=== PATIENT | female | born 1945 | race African-American/Black ===

== ENCOUNTER 2018-02-24 16:07 | Inpatient (IN) | payer OTHER ==
--- NOTE | 2018-02-24 18:12 | ER ---
Nurse's Notes [facility] Name: Yelena Flores Age: 72 yrs Sex: Female : 1945 Arrival Date: 02/24/2018 Time: 16:16 Bed 7 Private MD: Diagnosis: Cellulitis right lower extremity, mutlipe stage one decub (right foot and bottock, chronic left shoulder pain Presentation: 02/24 16:08 Presenting complaint: EMS states: c/o nausea and left shoulder pain. Afebrile. BP 99/53 sv HR 88 99% RA BS-129, 20G L AC. Transition of care: patient was not received from another setting of care. Onset of symptoms was February 23, 2018. Care prior to arrival: IV initiated. 20 GA, in the left antecubital area, Glucose check: 129. 16:08 Method Of Arrival: EMS: [facility] sv 16:08 Acuity: EMMA 4 sv 16:09 Initial Sepsis Screen: Does the patient meet any 2 criteria? No. Patient's initial sv sepsis screen is negative. Does the patient have a suspected source of infection? No. Patient's initial sepsis screen is negative. Triage Assessment: 19:00 GI: Reports nausea. bp 19:00 General: Appears in no apparent distress. comfortable. bp Historical: - Allergies: 16:19 Codeine; sv - Home Meds: 19:44 carvedilol 25 mg Oral tab [Active]; furosemide 40 mg/5 mL Oral soln [Active]; bp gabapentin 600 mg Oral tab [Active]; isosorbide mononitrate 60 mg Oral Tb24 [Active]; lisinopril 20 mg Oral tab [Active]; nortriptyline 75 mg Oral cap [Active]; Potassium Chloride Oral [Active]; tramadol 50 mg Oral tab [Active]; Xarelto 20 mg Oral tab [Active]; - PMHx: 16:19 CHF; CVA; Hypertension; Lupus; neuropathy; sv - Immunization history:: Adult Immunizations up to date. - Social history:: Smoking status: unknown. Screenin:30 Abuse screen: Denies threats or abuse. Denies injuries from another. Nutritional sg screening: No deficits noted. Tuberculosis screening: No symptoms or risk factors identified. Never had TB. Fall Risk None identified. Assessment: 16:30 General: Appears in no apparent distress. comfortable, well groomed, well developed, sg well nourished, Behavior is calm, cooperative, appropriate for age. Pain: Complains of pain in right leg and anterior aspect of right ankle and medial aspect of right calf. Neuro: Level of Consciousness is awake, alert, obeys commands, Oriented to person, place, time, Rn Manager are equal bilaterally Moves all extremities. Full function Speech is normal, Facial symmetry appears normal. Cardiovascular: Heart tones S1 S2 present Capillary refill is brisk in bilateral fingers Patient's skin is warm and dry. Chest pain is denied. Cardiovascular: Edema pitting to left ankle, left foot, left toes, right ankle, right foot and right toes. Respiratory: Airway is patent Respiratory effort is even, unlabored, Respiratory pattern is regular, symmetrical. GI: Abdomen is round non-distended, Bowel sounds present X 4 quads. Abd is soft X 4 quads. : No signs and/or symptoms were reported regarding the genitourinary system. EENT: No signs and/or symptoms were reported regarding the EENT system. Derm: Skin is intact, is healthy with good turgor, Skin is dry, Skin is normal, Skin temperature is warm Rash noted that is red, on right calf, right maldonado, left calf and left maldonado. Musculoskeletal: No signs and/or symptoms reported regarding the musculoskeletal system. 17:30 Reassessment: Patient appears in no apparent distress at this time. Patient and/or sg family updated on plan of care and expected duration. Pain level reassessed. Patient is alert, oriented x 3, equal unlabored respirations, skin warm/dry/pink. pt crying at this time, awaiting orders from ERP , will continue to monitor. 18:10 Reassessment: Patient appears in no apparent distress at this time. Patient and/or sg family updated on plan of care and expected duration. Pain level reassessed. Patient is alert, oriented x 3, equal unlabored respirations, skin warm/dry/pink. awaiting orders from ED provider at this time. 18:30 Reassessment: at bedside with pt at this time. sg 19:00 Reassessment: RECD REPORT FROM SHIRAZ BARTH. 72YO BF P/W NAUSEA AND CHRONIC SHOULDER bp PAIN. ADMIT IN PROCESS FOR CELLULITIS. Vital Signs: 16:20 BP 101 / 47; Pulse 90; Resp 18; Temp 97.6(O); Pulse Ox 96% on R/A; Height 5 ft. 4 in. sv (162.56 cm) (R); Pain 5/10; 17:00 BP 104 / 48; Pulse 95; Resp 18; Pulse Ox 96% ; sv 18:00 BP 94 / 70; Pulse 101; Resp 18; Pulse Ox 96% ; sv 19:00 BP 114 / 48; Pulse 101; Resp 18; Pulse Ox 97% ; sv 20:00 BP 86 / 42; Pulse 92; Resp 16; Pulse Ox 97% ; bp 20:41 BP 99 / 48; Pulse 99; Resp 16; Pulse Ox 97% ; bp ED Course: 16:16 Patient arrived in ED. sv 16:18 Triage completed. sv 16:19 Arm band placed on left wrist. sv 16:19 Maintain EMS IV. Dressing intact. Site clean \T\ dry. Gauge \T\ site: 20G L AC. sv 16:30 Patient has correct armband on for positive identification. Bed in low position. Call sg light in reach. Side rails up X2. Pulse ox on. NIBP on. Head of bed elevated. Elevated right left leg. 16:46 Jacek Strickland MD is Attending Physician. kdr 16:48 Nathaniel Ochoa, LARY is Primary Nurse. sg 18:10 Norm Neville MD is Hospitalizing Provider. kdr 18:15 Initial lab(s) drawn, by nm, sent to lab. First set of blood cultures drawn by me. sv Inserted saline lock: 22 gauge in right forearm, using aseptic technique. ,using aseptic technique. diffusics Blood collected. Flushed right forearm with 5 ml normal saline. 18:30 Second set of blood cultures drawn by me. sv 19:00 No provider procedures requiring assistance completed. sg 19:04 Primary Nurse role handed off by Nathaniel Ochoa, LARY bp 19:04 Robbie Pereyra, LARY is Primary Nurse. bp 19:45 Patient admitted, IV remains in place. bp Administered Medications: 19:00 Drug: Clindamycin 600 mg Route: IVPB; Infused Over: 30 mins; Site: right forearm; sv 19:46 Follow up: IV Status: Completed infusion bp 19:00 Drug: Bactrim (160 mg-800 mg (DS) 1 tablet Route: PO; sv 19:48 Follow up: Response: No adverse reaction bp 19:00 Drug: morphine 2 mg Route: IVP; Site: right forearm; sv 19:48 Follow up: Response: No adverse reaction bp 19:00 Drug: Zofran 4 mg Route: IVP; Site: right forearm; sv 19:48 Follow up: Response: No adverse reaction bp Outcome: 18:12 Decision to Hospitalize by Provider. kdr 19:45 Condition: stable bp 19:45 Instructed on the need for admit. 20:40 Admitted to Med/surg accompanied by tech, via stretcher, room 404, with chart, Report bp called to ANNY BARTH 21:12 Patient left the ED. bp Signatures: Tila Freeman RN RN Nathaniel Escobar RN RN sg Rittger, Kevin, MD MD kdr Robbie Pereyra RN RN bp
--- NOTE | 2018-02-24 18:13 | EDPHYS ---
Physician Documentation [facility] Name: Yelena Flores Age: 72 yrs Sex: Female : 1945 Arrival Date: 02/24/2018 Time: 16:16 Bed 7 Private MD: ED Physician Jacek Strickland HPI: 02/24 18:33 This 72 yrs old Black Female presents to ER via EMS with complaints of Nausea, Shoulder kdr Pain \T\ right leg edema./cellulitis. 18:34 The patient has multiple complaints including left shoulder (chronic) , n/v, right leg kdr swelling and warmth, stage I decub on right heal and huttock. Onset: The symptoms/episode began/occurred gradually, 3 day(s) ago. Severity of symptoms: At their worst the symptoms were mild moderate just prior to arrival. The patient has experienced similar episodes in the past, a few times. The patient has been recently seen by a physician: The patient has been recently been admitted at [facility], a few weeks ago. Historical: - Allergies: 16:19 Codeine; sv - Home Meds: 19:44 carvedilol 25 mg Oral tab [Active]; furosemide 40 mg/5 mL Oral soln [Active]; bp gabapentin 600 mg Oral tab [Active]; isosorbide mononitrate 60 mg Oral Tb24 [Active]; lisinopril 20 mg Oral tab [Active]; nortriptyline 75 mg Oral cap [Active]; Potassium Chloride Oral [Active]; tramadol 50 mg Oral tab [Active]; Xarelto 20 mg Oral tab [Active]; - PMHx: 16:19 CHF; CVA; Hypertension; Lupus; neuropathy; sv - Immunization history:: Adult Immunizations up to date. - Social history:: Smoking status: unknown. ROS: 18:34 Constitutional: Negative for fever, chills, and weight loss, Eyes: Negative for injury, kdr pain, redness, and discharge, ENT: Negative for injury, pain, and discharge, Neck: Negative for injury, pain, and swelling, Cardiovascular: Negative for chest pain, palpitations, and edema, Respiratory: Negative for shortness of breath, cough, wheezing, and pleuritic chest pain, Abdomen/GI: Negative for abdominal pain, nausea, vomiting, diarrhea, and constipation, Back: Negative for injury and pain, : Negative for injury, bleeding, discharge, and swelling, Neuro: Negative for headache, weakness, numbness, tingling, and seizure activity. Psych: Negative for depression, anxiety, suicide ideation, homicidal ideation, and hallucinations, Allergy/Immunology: Negative for hives, rash, and allergies, Endocrine: Negative for neck swelling, polydipsia, polyuria, polyphagia, and marked weight changes. 18:34 MS/extremity: Positive for pain, swelling, tenderness, warmth, of the lateral aspect of right calf, right ankle, right calf, right Achilles, medial aspect of right calf, right maldonado and anterior aspect of right ankle. Exam: 18:34 Constitutional: This is a well developed, well nourished patient who is awake, alert, kdr and in no acute distress. Head/Face: Normocephalic, atraumatic. Eyes: Pupils equal round and reactive to light, extra-ocular motions intact. Lids and lashes normal. Conjunctiva and sclera are non-icteric and not injected. Cornea within normal limits. Periorbital areas with no swelling, redness, or edema. Neck: Trachea midline, no thyromegaly or masses palpated, and no cervical lymphadenopathy. Supple, full range of motion without nuchal rigidity, or vertebral point tenderness. No Meningismus. Chest/axilla: Normal chest wall appearance and motion. Nontender with no deformity. No lesions are appreciated. Cardiovascular: Regular rate and rhythm with a normal S1 and S2. No gallops, murmurs, or rubs. Normal PMI, no JVD. No pulse deficits. Respiratory: Lungs have equal breath sounds bilaterally, clear to auscultation and percussion. No rales, rhonchi or wheezes noted. No increased work of breathing, no retractions or nasal flaring. Abdomen/GI: Soft, non-tender, with normal bowel sounds. No distension or tympany. No guarding or rebound. No evidence of tenderness throughout. Back: No spinal tenderness. No costovertebral tenderness. Full range of motion. Skin: Warm, dry with normal turgor. Normal color with no rashes, no lesions, and no evidence of cellulitis. Neuro: Awake and alert, GCS 15, oriented to person, place, time, and situation. Cranial nerves II-XII grossly intact. Motor strength 5/5 in all extremities. Sensory grossly intact. Cerebellar exam normal. Normal gait. Psych: Awake, alert, with orientation to person, place and time. Behavior, mood, and affect are within normal limits. 18:34 Skin: cellulitis, that is mild, confluent, on the lateral aspect of right calf, right ankle, right calf, right Achilles, medial aspect of right calf, right maldonado and anterior aspect of right ankle, induration, that is moderate is noted, Chronic bilateral lymphedema. Vital Signs: 16:20 BP 101 / 47; Pulse 90; Resp 18; Temp 97.6(O); Pulse Ox 96% on R/A; Height 5 ft. 4 in. sv (162.56 cm) (R); Pain 5/10; 17:00 BP 104 / 48; Pulse 95; Resp 18; Pulse Ox 96% ; sv 18:00 BP 94 / 70; Pulse 101; Resp 18; Pulse Ox 96% ; sv 19:00 BP 114 / 48; Pulse 101; Resp 18; Pulse Ox 97% ; sv 20:00 BP 86 / 42; Pulse 92; Resp 16; Pulse Ox 97% ; bp 20:41 BP 99 / 48; Pulse 99; Resp 16; Pulse Ox 97% ; bp MDM: 18:12 Patient medically screened. kdr 18:34 Data reviewed: vital signs, nurses notes, lab test result(s). Counseling: I had a kdr detailed discussion with the patient and/or guardian regarding: the historical points, exam findings, and any diagnostic results supporting the discharge/admit diagnosis, lab results, the need for further work-up and treatment in the hospital. 02/24 17:51 Order name: CBC with Diff kdr 02/24 17:51 Order name: Chem 7 kdr 02/24 17:51 Order name: Blood Culture Adult (2) kdr 02/24 20:02 Order name: C-Reactive Protein EDMS Administered Medications: 19:00 Drug: Clindamycin 600 mg Route: IVPB; Infused Over: 30 mins; Site: right forearm; sv 19:46 Follow up: IV Status: Completed infusion bp 19:00 Drug: Bactrim (160 mg-800 mg (DS) 1 tablet Route: PO; sv 19:48 Follow up: Response: No adverse reaction bp 19:00 Drug: morphine 2 mg Route: IVP; Site: right forearm; sv 19:48 Follow up: Response: No adverse reaction bp 19:00 Drug: Zofran 4 mg Route: IVP; Site: right forearm; sv 19:48 Follow up: Response: No adverse reaction bp Disposition: 02/24/18 18:12 Hospitalization ordered by Norm Neville for Inpatient Admission. Preliminary diagnosis is Cellulitis right lower extremity, mutlipe stage one decub (right foot and bottock, chronic left shoulder pain. - Bed requested for Telemetry/MedSurg (Inpatient). - Status is Inpatient Admission. bp - Condition is Fair. - Problem is an acute exacerbation. - Symptoms are unchanged. UTI on Admission? No Signatures: Dispatcher [employer] EDMS Pat Gaona Stephanie, RN Kelly Devi RN RN dw Gay, Steven, RN RN sg Rittger, Kevin, MD MD [facility] Robbie Pereyra RN RN bp Corrections: (The following items were deleted from the chart) 18:53 18:12 Hospitalization Ordered by Norm Neville MD for Inpatient Admission. Preliminary bd diagnosis is Cellulitis right lower extremity, mutlipe stage one decub (right foot and bottock, chronic left shoulder pain. Bed requested for Telemetry/MedSurg (Inpatient). Status is Inpatient Admission. Condition is Fair. Problem is an acute exacerbation. Symptoms are unchanged. UTI on Admission? No. kdr 18:53 18:53 02/24/2018 18:12 Hospitalization Ordered by Norm Neville MD for Inpatient dw Admission. Preliminary diagnosis is Cellulitis right lower extremity, mutlipe stage one decub (right foot and bottock, chronic left shoulder pain. Bed requested for Telemetry/MedSurg (Inpatient). Status is Inpatient Admission. Condition is Fair. Problem is an acute exacerbation. Symptoms are unchanged. UTI on Admission? No. bd 21:12 18:53 02/24/2018 18:12 Hospitalization Ordered by Norm Neville MD for Inpatient bp Admission. Preliminary diagnosis is Cellulitis right lower extremity, mutlipe stage one decub (right foot and bottock, chronic left shoulder pain. Bed requested for Telemetry/MedSurg (Inpatient). Status is Inpatient Admission. Condition is Fair. Problem is an acute exacerbation. Symptoms are unchanged. UTI on Admission? No. dw
[2018-02-24] MEDS ORDERED: SMZ./TMP. 800/160 MG TABLET ONE (18:17)
[2018-02-24] MEDS ORDERED: CLINDAMYCIN 600MG/D5W 600 MG/50 ML BAG IV ONE (18:18)
[2018-02-24] MEDS ORDERED: MORPHINE 4 MG/ML SYR ONE (18:18)
[2018-02-24] MEDS ORDERED: ONDANSETRON 4 MG/2 ML VIAL ONE (18:19)
[2018-02-24 18:45] LABS: Absolute Lymphocytes (CBC) 1.4 K/uL (0.7-4.9); Absolute Monocytes 0.5 K/uL (0.1-1.3); Basophils % 0.5 % (0-1.3); Eosinophils % 1.7 % (0-4.4); Hematocrit 28.9 % (36.0-45.0); MCH 27.5 pg (27.0-35.0); MCV 83.6 fL (80-100); MPV 8.6 fL (7.6-11.3); Monocytes % 10.5 % (3.3-12.3); RBC Red Blood Cell Count 3.46 M/uL (3.86-4.86)
[2018-02-24 18:53] LABS: Potassium 3.5 mEq/L (3.6-5.0)
--- NOTE | 2018-02-24 19:17 | P.HP ---
Certification for Inpatient Patient admitted to: Observation With expected LOS: <2 Midnights Patient will require the following post-hospital care: None Practitioner: I am a practitioner with admitting privileges, knowledge of patient current condition, hospital course, and medical plan of care. Services: Services provided to patient in accordance with Admission requirements found in Title 42 Section 412.3 of the Code of Federal Regulations Patient History Date of Service: 02/24/18 Primary Care Provider: None Reason for admission: Cellulitis History of Present Illness: 72-year-old female with significant past medical history of hypertension, AFib, COPD, history of CVA, who presented to the ER complaining of having some bilateral swelling has gotten worse over 1-2 weeks. Patient stated that she started noticing a healer sore on the right heel which started hurting her more and her pain was radiating down from her breast leg all the way up to her pelvis area. Patient does decided to come to the ER to get a further checked out. Patient denies having any nausea vomiting fever chills or any other associated symptoms at this time. Aside from bilateral swelling and pain. Patient does not have any other complaints to offer. Patient is a poor historian who live by herself at home and does not have a good followup as well. Patient it was a usp for rehab however was discharged from the usp when she was appropriate from rehab. In the ER patient was found to have bilateral lower extremity cellulitis with mildly elevated white count and thus was referred over for admission for further care. Allergies codeine Allergy (Mild, Verified 06/20/15 16:09) Rash No Known Allergies Allergy (Uncoded 06/28/16 17:37) Unknown Home Medications: Carvedilol [Coreg*] 25 mg PO BID 06/20/15 Cyanocobalamin [Vitamin B-12*] 1,000 mcg IJ ONCE 06/20/15 Nitroglycerin [Nitrostat*] 1 tab SL PRN PRN 06/20/15 Tramadol HCl [Ultram] 50 mg PO BID PRN 06/20/15 Triamcinolone 0.1% Crm [Kenalog 0.1% Cream*] 15 appl TOP TID 06/20/15 Carvedilol [Coreg*] 6.25 mg PO BID #60 tab 01/11/18 Furosemide [Lasix*] 40 mg PO DAILY #30 tab 01/11/18 Ipratropium Neb [Atrovent*] 0.5 mg NEB Q6HP PRN #30 amp 01/11/18 Isosorbide Mononitrate [Isosorbide Mononitrate ER] 60 mg PO DAILY #30 tab.er.24h 01/11/18 Mometasone/Formoterol [Dulera 100 Mcg/5 Mcg Inhaler] 2 puff IH BID #1 inhaler Pantoprazole [Protonix Tab*] 40 mg PO DAILYAC #30 tab 01/11/18 Potassium Chloride [Klor-Con] 40 meq PO DAILY #60 packet 01/11/18 Rivaroxaban [Xarelto*] 20 mg PO DAILY #30 tablet 01/11/18 Smz./Tmp. [Bactrim Ds 800 MG/160 MG*] 1 tab PO BID #20 tab 01/11/18 Tizanidine [Zanaflex*] 2 mg PO BID #60 tab 01/11/18 - Past Medical/Surgical History Diabetic: Yes -: stroke with left sided weakness -: COPD -: Venous insufficiency -: benign hypertension -: peripheral neuropathy -: lymphedema -: urinary incontinence -: tubal ligation -: myomectomy -: bowel obstruction surgery x 2 -: sialolith-s/p excision. - Family History Father -: Heart disease - Social History Alcohol use: No CD- Drugs: No Caffeine use: No Review of Systems General: As per HPI Physical Examination - Physical Exam General: Alert, In no apparent distress, Oriented x3 HEENT: Atraumatic Neck: Supple Respiratory: Clear to auscultation bilaterally, Normal air movement Cardiovascular: Regular rate/rhythm, Normal S1 S2 Gastrointestinal: Normal bowel sounds, Soft and benign, Non-distended, No tenderness Musculoskeletal: Swelling (Swelling BL LE. Erythema noted BL LE as well. No active wound noted on the left. Heel Ulcer noted on the right stage 2. ) Integumentary: No rashes, Tenderness/swelling, Erythema Neurological: Normal speech, Normal strength at 5/5 x4 extr, Normal tone Lymphatics: No axilla or inguinal lymphadenopathy Assessment and Plan - Problems (Diagnosis) (1) Cellulitis Current Visit: Yes Status: Acute Plan: BL LE cellulitis most likely 2/2 to chronic swelling -IV vanc and zosyn -MRI to rule out osteomylitis on the right heel -Blood cutlure pending Qualifiers: Site of cellulitis: extremity Site of cellulitis of extremity: lower extremity Laterality: unspecified laterality Qualified Code(s): L03.119 - Cellulitis of unspecified part of limb (2) Lymphedema Current Visit: No Status: Chronic (3) Atrial fibrillation Onset Date: 01/04/18 Current Visit: No Status: Chronic Qualifiers: Atrial fibrillation type: chronic Qualified Code(s): I48.2 - Chronic atrial fibrillation (4) COPD (chronic obstructive pulmonary disease) Onset Date: 01/04/18 Current Visit: No Status: Chronic Qualifiers: COPD type: chronic bronchitis Chronic bronchitis type: mixed simple and mucopurulent Qualified Code(s): J41.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 (5) History of CVA (cerebrovascular accident) Onset Date: 01/04/18 Current Visit: No Status: Chronic (6) Hypertension Onset Date: 01/04/18 Current Visit: No Status: Chronic Qualifiers: Hypertension type: essential hypertension (7) Hyperthyroidism Onset Date: 01/04/18 Current Visit: No Status: Chronic (8) Obesity Onset Date: 01/04/18 Current Visit: No Status: Chronic Qualifiers: Obesity type: due to excess calories Obesity classification: adult class 3 (BMI >= 40) Serious obesity comorbidity presence: with serious comorbidity Body mass index: BMI 45.0-49.9 Qualified Code(s): E66.01 - Morbid (severe) obesity due to excess calories; Z68.42 - Body mass index (BMI) 45.0-49.9, adult Discharge Plan: Home Plan to discharge in: 24 Hours - Advance Directives Does patient have a Living Will: No Does patient have a Durable POA for Healthcare: No - Code Status/Comfort Care Code Status Assessed: Yes Critical Care: No
[2018-02-24] MEDS: INSULIN -REGULAR HUMAN 50 UNIT/0.5 ML ML SQ SCH (21:36)
[2018-02-24] MEDS ORDERED: ONDANSETRON 4 MG/2 ML VIAL IV PRN (21:36)
[2018-02-25] MEDS ORDERED: PIPER/TAZO/NS 3.375gm 6.750 GM/200 ML BAG ONE (01:06)
[2018-02-25] MEDS: PIPER/TAZO/NS 3.375gm 3.375 GM/100 ML BAG IVPB SCH ×4 (01:12→17:11)
[2018-02-25] MEDS: HYDROCODONE/APAP 10/325 TAB PO PRN ×2 (03:29→14:52)
[2018-02-25 05:06] LABS: Absolute Lymphocytes (CBC) 1.3 K/uL (0.7-4.9); Absolute Monocytes 0.5 K/uL (0.1-1.3); Absolute Neutrophil 2.7 K/uL (1.8-8.0); Basophils % 0.5 % (0-1.3); Eosinophils % 2.4 % (0-4.4); Lymphocytes % 28.2 % (15.3-44.8); MCH 26.8 pg (27.0-35.0); MCV 83.8 fL (80-100); MPV 9.1 fL (7.6-11.3); Monocytes % 11.4 % (3.3-12.3); RBC Red Blood Cell Count 3.46 M/uL (3.86-4.86)
[2018-02-25 05:35] LABS: Potassium 3.8 mEq/L (3.6-5.0)
[2018-02-25 06:09] LABS: Albumin 2.5 g/dL (3.2-5.5); Bilirubin Total 0.9 mg/dL (0.3-1.2); Magnesium 1.5 mg/dL (1.8-2.5); Phosphorus 3.7 mg/dL (2.5-4.3)
[2018-02-25] MEDS ORDERED: Magnesium Sulfate 2gm IVPB 2 G/50 ML BAG IV ONE (06:19)
[2018-02-25] MEDS ORDERED: POTASSIUM 25 MEQ EFFERV TAB PO ONE (07:00)
[2018-02-25 07:06] LABS: Urine Appearance CLOUDY; Urine Bilirubin NEGATIVE (NEG); Urine Blood NEGATIVE (NEG); Urine Color YELLOW; Urine Glucose NEGATIVE (NEG); Urine Protein NEGATIVE (NEG); Urine Specific Gravity 1.015 (1.005-1.030)
[2018-02-25] MEDS: INSULIN -REGULAR HUMAN 50 UNIT/0.5 ML ML SQ SCH ×4 (07:30→21:00)
[2018-02-25] MEDS ORDERED: PNEUMOCOCCAL VACCINE 0.5 ML IMVAC ONE (08:00)
[2018-02-25 08:14] LABS: Urine Microscopic Reflex ORDER UMIC
[2018-02-25 08:18] LABS: Urine RBC <5 /HPF (NONE SEEN)
[2018-02-25 08:19] LABS: Urine Bacteria 20-50 /HPF (<20); Urine Culture Reflex Order NOT NEEDED
[2018-02-25] MEDS: hydroCHLOROthiazide 25 MG TAB PO SCH (09:00)
[2018-02-25] MEDS ORDERED: HOME MED 1 EA UNK (Lisinopril/Hydrochlorothiazide [Zestoretic 20-25 Mg Tablet] 1 TAB) PO SCH (09:00)
[2018-02-25] MEDS: LISINOPRIL 20 MG TAB PO SCH (09:00)
[2018-02-25] MEDS: CYANOCOBALAMIN 1,000 MCG TAB PO SCH (09:59)
[2018-02-25] MEDS: MONTELUKAST 10 MG TAB PO SCH (09:59)
[2018-02-25] MEDS: ISOSORBIDE MONO SR 60 MG TAB PO SCH (09:59)
[2018-02-25] MEDS: CARVEDILOL 25 MG TAB PO SCH ×2 (10:01→21:00)
--- NOTE | 2018-02-25 10:26 | RAD REPORT ---
EXAM DESCRIPTION: MRIFoot (Right) CLINICAL HISTORY: Open sore on heel, assess for osteomyelitis. COMPARISON: None. FINDINGS: Ill-defined skin thickening and subcutaneous edematous tissue is seen about the heel poste rior aspect as well as the plantar aspect of the broad posterior and plantar calcaneal spurs are seen . The underlying marrow pattern of the calcaneus remains normal with normal with normal fatty marrow T1 signal and a lack of elevated T2/IR signal. This would indicate that osteomyelitis is not present at this time. No drainable fluid collection seen. No fracture or subluxation seen. IMPRESSION: Negative for osteomyelitis.
[2018-02-25] MEDS: FUROSEMIDE 40 MG TABLET PO SCH ×2 (10:48→17:12)
[2018-02-25] MEDS ORDERED: NA CHLORIDE 0.9% 500 ML IV ONE (13:35)
--- NOTE | 2018-02-25 13:41 | P.PN ---
Subjective Date of Service: 02/25/18 Primary Care Provider: None Chief Complaint: Cellulitis Patient seen and examined at bedside with RN. Case discussed with family. Currently patient is doing well. States that she feels much better than before. Review of Systems General: As per HPI Physical Examination - Vital Signs Temperature: 98.0 F Blood Pressure: 90/48 Pulse: 96 Respirations: 16 Pulse Ox (%): 89 - Physical Exam General: Alert, In no apparent distress HEENT: Atraumatic, PERRLA, EOMI Neck: Supple, JVD not distended Respiratory: Clear to auscultation bilaterally, Normal air movement Cardiovascular: Regular rate/rhythm, Normal S1 S2 Gastrointestinal: Normal bowel sounds, No tenderness Musculoskeletal: Swelling (3+ swelling. Improved erythema ), Erythema, Tenderness Integumentary: No rashes Neurological: Normal speech, Normal tone, Normal affect Lymphatics: No axilla or inguinal lymphadenopathy - Studies Medications List Reviewed: Yes Assessment & Plan - Problems (Diagnosis) (1) Cellulitis Onset Date: 02/25/18 Current Visit: Yes Status: Acute Plan: BL LE cellulitis most likely 2/2 to chronic swelling -IV zosyn -MRI negaitve for osteomylitis -Neo wrap and elevate legs. -Blood cutlure pending Qualifiers: Site of cellulitis: extremity Site of cellulitis of extremity: lower extremity Laterality: unspecified laterality Qualified Code(s): L03.119 - Cellulitis of unspecified part of limb (2) Lymphedema Onset Date: 02/25/18 Current Visit: Yes Status: Chronic (3) Atrial fibrillation Onset Date: 01/04/18 Current Visit: No Status: Chronic Qualifiers: Atrial fibrillation type: chronic Qualified Code(s): I48.2 - Chronic atrial fibrillation (4) COPD (chronic obstructive pulmonary disease) Onset Date: 01/04/18 Current Visit: No Status: Chronic Qualifiers: COPD type: chronic bronchitis Chronic bronchitis type: mixed simple and mucopurulent Qualified Code(s): J41.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 (5) History of CVA (cerebrovascular accident) Onset Date: 01/04/18 Current Visit: No Status: Chronic (6) Hypertension Onset Date: 01/04/18 Current Visit: No Status: Chronic Qualifiers: Hypertension type: essential hypertension (7) Hyperthyroidism Onset Date: 01/04/18 Current Visit: No Status: Chronic (8) Obesity Onset Date: 01/04/18 Current Visit: No Status: Chronic Qualifiers: Obesity type: due to excess calories Obesity classification: adult class 3 (BMI >= 40) Serious obesity comorbidity presence: with serious comorbidity Body mass index: BMI 45.0-49.9 Qualified Code(s): E66.01 - Morbid (severe) obesity due to excess calories; Z68.42 - Body mass index (BMI) 45.0-49.9, adult (9) UTI (urinary tract infection) Current Visit: No Status: Acute Plan: UA + for EColi. -Urine culture pending -IV zosyn for now Qualifiers: Urinary tract infection type: acute cystitis Hematuria presence: without hematuria Qualified Code(s): N30.00 - Acute cystitis without hematuria Discharge Plan: Home Plan to discharge in: 24 Hours - Code Status/Comfort Care Code Status Assessed: Yes Critical Care: No
[2018-02-25] MEDS ORDERED: GLUCAGON 1 MG/VIAL IM PRN (15:32)
[2018-02-25] MEDS ORDERED: D50W 25 GM/50 ML SYRINGE IV PRN (15:32)
[2018-02-25] MEDS ORDERED: MAGNESIUM SULFATE 1 gm IVPB 1 GM/100 ML BAG IV ONE (17:00)
[2018-02-25] MEDS: RIVAROXABAN 20 MG TABLET PO SCH (17:12)
[2018-02-25] MEDS: JUVEN PACKET PO SCH (20:59)
[2018-02-26] MEDS: PIPER/TAZO/NS 3.375gm 3.375 GM/100 ML BAG IVPB SCH ×3 (00:45→17:58)
[2018-02-26] MEDS: HYDROCODONE/APAP 10/325 TAB PO PRN ×2 (00:49→10:07)
[2018-02-26 03:39] VITALS: BMI 31.7
[2018-02-26 05:25] LABS: Absolute Monocytes 0.6 K/uL (0.1-1.3); Absolute Neutrophil 3.1 K/uL (1.8-8.0); Basophils % 0.5 % (0-1.3); Eosinophils % 1.9 % (0-4.4); Hematocrit 31.3 % (36.0-45.0); Lymphocytes % 21.5 % (15.3-44.8); MCH 27.4 pg (27.0-35.0); MCV 83.5 fL (80-100); Monocytes % 11.5 % (3.3-12.3); RBC Red Blood Cell Count 3.74 M/uL (3.86-4.86)
[2018-02-26 05:36] LABS: Albumin 2.6 g/dL (3.2-5.5); Bilirubin Total 0.8 mg/dL (0.3-1.2); Magnesium 1.5 mg/dL (1.8-2.5); Potassium 3.5 mEq/L (3.6-5.0); Protein, Total 6.3 g/dL (6.0-8.3)
[2018-02-26] MEDS ORDERED: MAGNESIUM SULFATE 1 gm IVPB 1 GM/100 ML BAG IV ONE ×2 (06:02→15:45)
[2018-02-26] MEDS ORDERED: POTASSIUM 25 MEQ EFFERV TAB PO ONE (06:03)
[2018-02-26] MEDS ORDERED: NA CHLORIDE 0.9% 250 ML ONE (06:27)
[2018-02-26] MEDS: PANTOPRAZOLE 40MG TABLET PO SCH (06:49)
[2018-02-26] MEDS: INSULIN -REGULAR HUMAN 50 UNIT/0.5 ML ML SQ SCH ×4 (07:30→21:00)
[2018-02-26] MEDS: CARVEDILOL 25 MG TAB PO SCH ×2 (09:09→21:00)
[2018-02-26] MEDS: hydroCHLOROthiazide 25 MG TAB PO SCH (09:09)
[2018-02-26] MEDS: LISINOPRIL 20 MG TAB PO SCH (09:10)
[2018-02-26] MEDS: ISOSORBIDE MONO SR 60 MG TAB PO SCH (09:11)
[2018-02-26] MEDS: FUROSEMIDE 40 MG TABLET PO SCH ×2 (09:11→16:51)
[2018-02-26] MEDS: CYANOCOBALAMIN 1,000 MCG TAB PO SCH (09:11)
[2018-02-26] MEDS: MONTELUKAST 10 MG TAB PO SCH (09:16)
[2018-02-26] MEDS: JUVEN PACKET PO SCH ×2 (09:16→22:00)
--- NOTE | 2018-02-26 12:57 | P.PN ---
Subjective Date of Service: 02/26/18 Primary Care Provider: None Chief Complaint: Cellulitis Patient seen and examined at bedside with RN. Case discussed with family. Currently patient is doing well. States that she feels much better than before. Urine culture + for gram - rods. Review of Systems General: As per HPI Physical Examination - Vital Signs Temperature: 97.4 F Blood Pressure: 94/48 Pulse: 90 Respirations: 18 Pulse Ox (%): 93 - Physical Exam General: Alert, In no apparent distress, Oriented x3 HEENT: Atraumatic, PERRLA, EOMI Neck: Supple, JVD not distended Respiratory: Clear to auscultation bilaterally, Normal air movement Cardiovascular: Regular rate/rhythm, Normal S1 S2 Gastrointestinal: Normal bowel sounds, No tenderness Musculoskeletal: Erythema, Tenderness, Warmth (BL 3+ edema. Still Warm to touch) Integumentary: No rashes Neurological: Normal speech, Normal tone, Normal affect Lymphatics: No axilla or inguinal lymphadenopathy - Studies Medications List Reviewed: Yes Assessment & Plan - Problems (Diagnosis) (1) Cellulitis Onset Date: 02/25/18 Current Visit: Yes Status: Acute Plan: BL LE cellulitis most likely 2/2 to chronic swelling. Improving slowly -IV zosyn -MRI negaitve for osteomylitis -Neo wrap and elevate legs. -Blood cutlure pending Qualifiers: Site of cellulitis: extremity Site of cellulitis of extremity: lower extremity Laterality: unspecified laterality Qualified Code(s): L03.119 - Cellulitis of unspecified part of limb (2) UTI (urinary tract infection) Current Visit: No Status: Acute Plan: UA + for UTI -Urine culture + for gram - rods -IV zosyn for now Qualifiers: Urinary tract infection type: acute cystitis Hematuria presence: without hematuria Qualified Code(s): N30.00 - Acute cystitis without hematuria (3) Lymphedema Onset Date: 02/25/18 Current Visit: Yes Status: Chronic (4) Atrial fibrillation Onset Date: 01/04/18 Current Visit: No Status: Chronic Qualifiers: Atrial fibrillation type: chronic Qualified Code(s): I48.2 - Chronic atrial fibrillation (5) COPD (chronic obstructive pulmonary disease) Onset Date: 01/04/18 Current Visit: No Status: Chronic Qualifiers: COPD type: chronic bronchitis Chronic bronchitis type: mixed simple and mucopurulent Qualified Code(s): J41.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 (6) History of CVA (cerebrovascular accident) Onset Date: 01/04/18 Current Visit: No Status: Chronic (7) Hypertension Onset Date: 01/04/18 Current Visit: No Status: Chronic Qualifiers: Hypertension type: essential hypertension (8) Hyperthyroidism Onset Date: 01/04/18 Current Visit: No Status: Chronic (9) Obesity Onset Date: 01/04/18 Current Visit: No Status: Chronic Qualifiers: Obesity type: due to excess calories Obesity classification: adult class 3 (BMI >= 40) Serious obesity comorbidity presence: with serious comorbidity Body mass index: BMI 45.0-49.9 Qualified Code(s): E66.01 - Morbid (severe) obesity due to excess calories; Z68.42 - Body mass index (BMI) 45.0-49.9, adult
[2018-02-26] MEDS: RIVAROXABAN 20 MG TABLET PO SCH (16:54)
[2018-02-27] MEDS: PIPER/TAZO/NS 3.375gm 3.375 GM/100 ML BAG IVPB SCH ×2 (00:41→09:48)
[2018-02-27 05:26] LABS: Absolute Lymphocytes (CBC) 1.7 K/uL (0.7-4.9); Absolute Monocytes 0.5 K/uL (0.1-1.3); Absolute Neutrophil 2.6 K/uL (1.8-8.0); Basophils % 0.4 % (0-1.3); Eosinophils % 1.6 % (0-4.4); Hematocrit 28.6 % (36.0-45.0); Lymphocytes % 34.9 % (15.3-44.8); MCH 26.8 pg (27.0-35.0); MCV 83.7 fL (80-100); MPV 9.1 fL (7.6-11.3); RBC Red Blood Cell Count 3.42 M/uL (3.86-4.86)
[2018-02-27 05:49] LABS: Albumin 2.3 g/dL (3.2-5.5); Bilirubin Total 0.7 mg/dL (0.3-1.2); Magnesium 1.6 mg/dL (1.8-2.5); Phosphorus 3.2 mg/dL (2.5-4.3); Potassium 3.4 mEq/L (3.6-5.0); Protein, Total 5.4 g/dL (6.0-8.3)
[2018-02-27] MEDS: PANTOPRAZOLE 40MG TABLET PO SCH (05:52)
[2018-02-27] MEDS ORDERED: MAGNESIUM SULFATE 1 gm IVPB 1 GM/100 ML BAG IV ONE (06:30)
[2018-02-27] MEDS ORDERED: POTASSIUM 25 MEQ EFFERV TAB PO ONE ×2 (06:30→14:34)
[2018-02-27] MEDS: INSULIN -REGULAR HUMAN 50 UNIT/0.5 ML ML SQ SCH ×4 (07:30→21:00)
[2018-02-27] MEDS: CARVEDILOL 25 MG TAB PO SCH ×2 (09:00→22:08)
[2018-02-27] MEDS: hydroCHLOROthiazide 25 MG TAB PO SCH (09:46)
[2018-02-27] MEDS: LISINOPRIL 20 MG TAB PO SCH (09:47)
[2018-02-27] MEDS: CYANOCOBALAMIN 1,000 MCG TAB PO SCH (09:47)
[2018-02-27] MEDS: FUROSEMIDE 40 MG TABLET PO SCH ×2 (09:47→17:18)
[2018-02-27] MEDS: GABAPENTIN 300 MG CAP PO PRN ×3 (09:47→23:50)
[2018-02-27] MEDS: JUVEN PACKET PO SCH ×2 (09:50→22:10)
[2018-02-27] MEDS: MONTELUKAST 10 MG TAB PO SCH (09:54)
--- NOTE | 2018-02-27 10:07 | P.PN ---
Subjective Date of Service: 02/27/18 Primary Care Provider: None Chief Complaint: Cellulitis Patient seen and examined at bedside with RN. Case discussed with family. Currently patient is doing well. States that she feels much better than before. Urine culture + for gram - rods. Review of Systems General: As per HPI Physical Examination - Vital Signs Temperature: 98.4 F Blood Pressure: 124/56 Pulse: 88 Respirations: 16 Pulse Ox (%): 97 - Physical Exam General: Alert, In no apparent distress, Obese HEENT: Atraumatic, PERRLA, EOMI Neck: Supple, JVD not distended Respiratory: Clear to auscultation bilaterally, Normal air movement Cardiovascular: Regular rate/rhythm, Normal S1 S2 Gastrointestinal: Normal bowel sounds, No tenderness Musculoskeletal: No tenderness, Swelling, Erythema, Warmth Integumentary: No rashes Neurological: Normal speech, Normal tone, Normal affect Lymphatics: No axilla or inguinal lymphadenopathy - Studies Medications List Reviewed: Yes Assessment & Plan - Problems (Diagnosis) (1) Cellulitis Onset Date: 02/25/18 Current Visit: Yes Status: Acute Plan: BL LE cellulitis most likely 2/2 to chronic swelling. Improving slowly -IV zosyn for now -MRI negaitve for osteomylitis -Neo wrap and elevate legs. -Blood cutlure pending Qualifiers: Site of cellulitis: extremity Site of cellulitis of extremity: lower extremity Laterality: unspecified laterality Qualified Code(s): L03.119 - Cellulitis of unspecified part of limb (2) UTI (urinary tract infection) Current Visit: No Status: Acute Plan: UA + for UTI -Urine culture + for gram - rods -IV zosyn for now Qualifiers: Urinary tract infection type: acute cystitis Hematuria presence: without hematuria Qualified Code(s): N30.00 - Acute cystitis without hematuria (3) Lymphedema Onset Date: 02/25/18 Current Visit: Yes Status: Chronic (4) Atrial fibrillation Onset Date: 01/04/18 Current Visit: No Status: Chronic Qualifiers: Atrial fibrillation type: chronic Qualified Code(s): I48.2 - Chronic atrial fibrillation (5) COPD (chronic obstructive pulmonary disease) Onset Date: 01/04/18 Current Visit: No Status: Chronic Qualifiers: COPD type: chronic bronchitis Chronic bronchitis type: mixed simple and mucopurulent Qualified Code(s): J41.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 (6) History of CVA (cerebrovascular accident) Onset Date: 01/04/18 Current Visit: No Status: Chronic (7) Hypertension Onset Date: 01/04/18 Current Visit: No Status: Chronic Qualifiers: Hypertension type: essential hypertension (8) Hyperthyroidism Onset Date: 01/04/18 Current Visit: No Status: Chronic (9) Obesity Onset Date: 01/04/18 Current Visit: No Status: Chronic Qualifiers: Obesity type: due to excess calories Obesity classification: adult class 3 (BMI >= 40) Serious obesity comorbidity presence: with serious comorbidity Body mass index: BMI 45.0-49.9 Qualified Code(s): E66.01 - Morbid (severe) obesity due to excess calories; Z68.42 - Body mass index (BMI) 45.0-49.9, adult Discharge Plan: Home Plan to discharge in: 24 Hours - Code Status/Comfort Care Code Status Assessed: Yes Critical Care: No
[2018-02-27] MEDS: ISOSORBIDE MONO SR 60 MG TAB PO SCH (12:32)
[2018-02-27] MEDS: ACETAMINOPHEN 500 MG TAB PO PRN (13:36)
[2018-02-27] MEDS ORDERED: Meropenem 1000 MG/VIAL IV SCH (17:00)
[2018-02-27] MEDS: RIVAROXABAN 20 MG TABLET PO SCH (17:18)
[2018-02-27] MEDS: Meropenem 1,000 MG in NA CHLORIDE 0.9% 100 ML IV SCH (17:20)
[2018-02-27] MEDS: HYDROCODONE/APAP 10/325 TAB PO PRN (23:51)
[2018-02-28] MEDS: Meropenem 1,000 MG in NA CHLORIDE 0.9% 100 ML IV SCH ×3 (01:45→17:05)
[2018-02-28 05:35] LABS: Magnesium 1.7 mg/dL (1.8-2.5)
[2018-02-28] MEDS: PANTOPRAZOLE 40MG TABLET PO SCH (05:44)
[2018-02-28] MEDS ORDERED: MAGNESIUM SULFATE 1 gm IVPB 1 GM/100 ML BAG IV ONE (05:52)
[2018-02-28 05:53] LABS: Potassium 3.5 mEq/L (3.6-5.0)
[2018-02-28] MEDS ORDERED: KCL 20 MEQ/100 mL IVPB 20 MEQ/100 ML BAG IV SCH (06:00)
[2018-02-28] MEDS: INSULIN -REGULAR HUMAN 50 UNIT/0.5 ML ML SQ SCH ×4 (07:30→20:31)
[2018-02-28] MEDS: JUVEN PACKET PO SCH ×3 (09:00→21:12)
[2018-02-28] MEDS: ISOSORBIDE MONO SR 60 MG TAB PO SCH (09:00)
[2018-02-28] MEDS: CYANOCOBALAMIN 1,000 MCG TAB PO SCH (11:03)
[2018-02-28] MEDS: LISINOPRIL 20 MG TAB PO SCH (11:03)
[2018-02-28] MEDS: FUROSEMIDE 40 MG TABLET PO SCH ×2 (11:03→17:05)
[2018-02-28] MEDS: hydroCHLOROthiazide 25 MG TAB PO SCH (11:04)
[2018-02-28] MEDS: CARVEDILOL 25 MG TAB PO SCH ×2 (11:04→20:32)
[2018-02-28] MEDS: MONTELUKAST 10 MG TAB PO SCH (11:07)
--- NOTE | 2018-02-28 12:10 | RAD REPORT ---
EXAM DESCRIPTION: RAD - Chest Single View - 02/28/2018 3:35 am CLINICAL HISTORY: PICC line placement. COMPARISON: None. FINDINGS: Portable chest was obtained following placement of a right upper extremity PICC line. The catheter tip is in the SVC.
--- NOTE | 2018-02-28 12:59 | P.PN ---
Subjective Date of Service: 02/28/18 Primary Care Provider: None Chief Complaint: Cellulitis Patient seen and examined at bedside with RN. Case discussed with family. Currently patient is doing well. States that she feels much better than before. Urine culture + for ESBL Review of Systems General: As per HPI Physical Examination - Vital Signs Temperature: 99.2 F Blood Pressure: 132/70 Pulse: 68 Respirations: 18 Pulse Ox (%): 91 - Physical Exam General: Alert, In no apparent distress HEENT: Atraumatic, PERRLA, EOMI Neck: Supple, JVD not distended Respiratory: Clear to auscultation bilaterally, Normal air movement Cardiovascular: Regular rate/rhythm, Normal S1 S2 Gastrointestinal: Normal bowel sounds, No tenderness Musculoskeletal: No tenderness, Erythema, Warmth Integumentary: No rashes Neurological: Normal speech, Normal tone, Normal affect Lymphatics: No axilla or inguinal lymphadenopathy - Studies Microbiology Data (last 24 hrs): 02/25/18 15:25 Catheterized Urine [place] Count - Final BETWEEN 10,000 & 100,000 CFU/ML 02/25/18 15:25 Catheterized Urine - Final Escherichia Coli Medications List Reviewed: Yes Assessment & Plan - Problems (Diagnosis) (1) Cellulitis Onset Date: 02/25/18 Current Visit: Yes Status: Acute Plan: BL LE cellulitis most likely 2/2 to chronic swelling. Improving slowly -IV Meropenum for now -MRI negaitve for osteomylitis -Neo wrap and elevate legs. -Blood culture negative thus far Qualifiers: Site of cellulitis: extremity Site of cellulitis of extremity: lower extremity Laterality: unspecified laterality Qualified Code(s): L03.119 - Cellulitis of unspecified part of limb (2) UTI (urinary tract infection) Current Visit: No Status: Acute Plan: UA + for UTI -Urine culture + for ESBL -IV Merrem for now -PICC line placed -Pt will need placement Qualifiers: Urinary tract infection type: acute cystitis Hematuria presence: without hematuria Qualified Code(s): N30.00 - Acute cystitis without hematuria (3) Lymphedema Onset Date: 02/25/18 Current Visit: Yes Status: Chronic (4) Atrial fibrillation Onset Date: 01/04/18 Current Visit: No Status: Chronic Qualifiers: Atrial fibrillation type: chronic Qualified Code(s): I48.2 - Chronic atrial fibrillation (5) COPD (chronic obstructive pulmonary disease) Onset Date: 01/04/18 Current Visit: No Status: Chronic Qualifiers: COPD type: chronic bronchitis Chronic bronchitis type: mixed simple and mucopurulent Qualified Code(s): J41.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 (6) History of CVA (cerebrovascular accident) Onset Date: 01/04/18 Current Visit: No Status: Chronic (7) Hypertension Onset Date: 01/04/18 Current Visit: No Status: Chronic Qualifiers: Hypertension type: essential hypertension (8) Hyperthyroidism Onset Date: 01/04/18 Current Visit: No Status: Chronic (9) Obesity Onset Date: 01/04/18 Current Visit: No Status: Chronic Qualifiers: Obesity type: due to excess calories Obesity classification: adult class 3 (BMI >= 40) Serious obesity comorbidity presence: with serious comorbidity Body mass index: BMI 45.0-49.9 Qualified Code(s): E66.01 - Morbid (severe) obesity due to excess calories; Z68.42 - Body mass index (BMI) 45.0-49.9, adult
[2018-02-28] MEDS: RIVAROXABAN 20 MG TABLET PO SCH (17:05)
[2018-02-28] MEDS: HYDROCODONE/APAP 10/325 TAB PO PRN (20:33)
[2018-02-28] MEDS: GABAPENTIN 300 MG CAP PO PRN (20:33)
[2018-03-01] MEDS: Meropenem 1,000 MG in NA CHLORIDE 0.9% 100 ML IV SCH ×3 (00:24→17:34)
[2018-03-01] MEDS: HYDROCODONE/APAP 10/325 TAB PO PRN ×2 (00:24→05:26)
[2018-03-01 04:49] LABS: Magnesium 1.9 mg/dL (1.8-2.5)
[2018-03-01 04:50] LABS: Potassium 3.1 mEq/L (3.6-5.0)
--- NOTE | 2018-03-01 04:58 | P.PN ---
Date of Service: 03/01/18 Patient has developed a slightly worsening metabolic alkalosis. This is most likely related to contraction metabolic alkalosis from diuretics. Will reassess in the morning and we will hold hydrochlorothiazide. Reassess in the next 24-48 hrs.
[2018-03-01] MEDS ORDERED: POTASSIUM 25 MEQ EFFERV TAB PO ONE ×2 (05:04→21:00)
[2018-03-01] MEDS: GABAPENTIN 300 MG CAP PO PRN (05:26)
[2018-03-01] MEDS: PANTOPRAZOLE 40MG TABLET PO SCH (05:30)
[2018-03-01] MEDS: INSULIN -REGULAR HUMAN 50 UNIT/0.5 ML ML SQ SCH ×4 (07:30→21:00)
[2018-03-01] MEDS: CYANOCOBALAMIN 1,000 MCG TAB PO SCH (08:28)
[2018-03-01] MEDS: MEDIHONEY 44 ML TOPICAL TUBE TOP SCH (08:28)
[2018-03-01] MEDS: MONTELUKAST 10 MG TAB PO SCH (08:28)
[2018-03-01] MEDS: CARVEDILOL 25 MG TAB PO SCH ×2 (09:00→21:57)
[2018-03-01] MEDS: ISOSORBIDE MONO SR 60 MG TAB PO SCH (09:00)
[2018-03-01] MEDS: FUROSEMIDE 40 MG TABLET PO SCH ×2 (09:00→17:35)
[2018-03-01] MEDS: JUVEN PACKET PO SCH ×2 (09:00→21:56)
[2018-03-01] MEDS: LISINOPRIL 20 MG TAB PO SCH (09:00)
--- NOTE | 2018-03-01 14:04 | P.PN ---
Subjective Date of Service: 03/01/18 Primary Care Provider: None Chief Complaint: Cellulitis Patient seen and examined at bedside with RN. Case discussed with family. Currently patient is doing well. States that she feels much better than before. Urine culture + for ESBL Review of Systems General: As per HPI Physical Examination - Vital Signs Temperature: 98.2 F Blood Pressure: 100/34 Pulse: 77 Respirations: 18 Pulse Ox (%): 90 - Physical Exam General: Alert, In no apparent distress HEENT: Atraumatic, PERRLA, EOMI Neck: Supple, JVD not distended Respiratory: Clear to auscultation bilaterally, Normal air movement Cardiovascular: Regular rate/rhythm, Normal S1 S2 Gastrointestinal: Normal bowel sounds, Soft and benign, Non-distended, No tenderness Musculoskeletal: Erythema, Tenderness, Warmth Integumentary: No rashes Neurological: Normal speech, Normal tone, Normal affect Lymphatics: No axilla or inguinal lymphadenopathy - Studies Medications List Reviewed: Yes Assessment & Plan - Problems (Diagnosis) (1) Cellulitis Onset Date: 02/25/18 Current Visit: Yes Status: Acute Plan: BL LE cellulitis most likely 2/2 to chronic swelling. Improving slowly -IV Meropenum for now -MRI negaitve for osteomylitis -Neo wrap and elevate legs. -Blood culture negative thus far Qualifiers: Site of cellulitis: extremity Site of cellulitis of extremity: lower extremity Laterality: unspecified laterality Qualified Code(s): L03.119 - Cellulitis of unspecified part of limb (2) UTI (urinary tract infection) Current Visit: No Status: Acute Plan: UA + for UTI -Urine culture + for ESBL -IV Merrem for now -PICC line placed -Pt will need placement Qualifiers: Urinary tract infection type: acute cystitis Hematuria presence: without hematuria Qualified Code(s): N30.00 - Acute cystitis without hematuria (3) Lymphedema Onset Date: 02/25/18 Current Visit: Yes Status: Chronic (4) Atrial fibrillation Onset Date: 01/04/18 Current Visit: No Status: Chronic Qualifiers: Atrial fibrillation type: chronic Qualified Code(s): I48.2 - Chronic atrial fibrillation (5) COPD (chronic obstructive pulmonary disease) Onset Date: 01/04/18 Current Visit: No Status: Chronic Qualifiers: COPD type: chronic bronchitis Chronic bronchitis type: mixed simple and mucopurulent Qualified Code(s): J41.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 (6) History of CVA (cerebrovascular accident) Onset Date: 01/04/18 Current Visit: No Status: Chronic (7) Hypertension Onset Date: 01/04/18 Current Visit: No Status: Chronic Qualifiers: Hypertension type: essential hypertension (8) Hyperthyroidism Onset Date: 01/04/18 Current Visit: No Status: Chronic (9) Obesity Onset Date: 01/04/18 Current Visit: No Status: Chronic Qualifiers: Obesity type: due to excess calories Obesity classification: adult class 3 (BMI >= 40) Serious obesity comorbidity presence: with serious comorbidity Body mass index: BMI 45.0-49.9 Qualified Code(s): E66.01 - Morbid (severe) obesity due to excess calories; Z68.42 - Body mass index (BMI) 45.0-49.9, adult (10) Metabolic alkalosis Current Visit: Yes Status: Acute Plan: Most likely 2.2 to HCTZ. Will hold for now -Will hold lasix as well for now due to Hypotension
[2018-03-01] MEDS: RIVAROXABAN 20 MG TABLET PO SCH (17:35)
[2018-03-02] MEDS: Meropenem 1,000 MG in NA CHLORIDE 0.9% 100 ML IV SCH ×3 (00:49→17:01)
[2018-03-02] MEDS: PANTOPRAZOLE 40MG TABLET PO SCH (05:31)
[2018-03-02] MEDS: INSULIN -REGULAR HUMAN 50 UNIT/0.5 ML ML SQ SCH ×4 (07:30→21:00)
[2018-03-02] MEDS: JUVEN PACKET PO SCH ×2 (09:00→21:12)
[2018-03-02] MEDS: MEDIHONEY 44 ML TOPICAL TUBE TOP SCH (09:00)
[2018-03-02] MEDS: CARVEDILOL 25 MG TAB PO SCH ×2 (09:56→21:13)
[2018-03-02] MEDS: LISINOPRIL 20 MG TAB PO SCH (09:56)
[2018-03-02] MEDS: MONTELUKAST 10 MG TAB PO SCH (09:56)
[2018-03-02] MEDS: ISOSORBIDE MONO SR 60 MG TAB PO SCH (09:57)
[2018-03-02] MEDS: FUROSEMIDE 40 MG TABLET PO SCH (09:57)
[2018-03-02] MEDS: CYANOCOBALAMIN 1,000 MCG TAB PO SCH (09:58)
[2018-03-02 10:33] LABS: Potassium 3.3 mEq/L (3.6-5.0)
[2018-03-02 10:35] LABS: Albumin 2.6 g/dL (3.2-5.5); Bilirubin Total 0.8 mg/dL (0.3-1.2); Protein, Total 6.3 g/dL (6.0-8.3)
[2018-03-02] MEDS ORDERED: NA CHLORIDE 0.9% 250 ML IV ONE (11:40)
[2018-03-02] MEDS ORDERED: POTASSIUM CL SA 10 MEQ TAB PO ONE (11:40)
--- NOTE | 2018-03-02 11:40 | P.PN ---
Subjective Date of Service: 03/02/18 Primary Care Provider: None Chief Complaint: Cellulitis Patient seen and examined at bedside with RN. Case discussed with family. Currently patient is doing well. States that she feels much better than before. Urine culture + for ESBL. Overnight pt was AAOx 2 but in AM during rounds pt was More Alert and oriented Review of Systems General: As per HPI Physical Examination - Vital Signs Temperature: 97.9 F Blood Pressure: 126/52 Pulse: 74 Respirations: 16 Pulse Ox (%): 91 - Physical Exam General: Alert, In no apparent distress, Oriented x3 HEENT: Atraumatic, PERRLA, EOMI Neck: Supple, JVD not distended Respiratory: Clear to auscultation bilaterally, Normal air movement Cardiovascular: Regular rate/rhythm, Normal S1 S2 Gastrointestinal: Normal bowel sounds, No tenderness Musculoskeletal: Swelling Integumentary: No rashes Neurological: Normal speech, Normal tone, Normal affect Lymphatics: No axilla or inguinal lymphadenopathy - Studies Microbiology Data (last 24 hrs): 02/24/18 18:30 Blood - Blood Aerobic Blood Culture - Final No growth in 5 days. 02/24/18 18:30 Blood - Blood Anaerobic Blood Culture - Final No growth in 5 days. 02/24/18 18:15 Blood - Blood Aerobic Blood Culture - Final No growth in 5 days. 02/24/18 18:15 Blood - Blood Anaerobic Blood Culture - Final No growth in 5 days. Medications List Reviewed: Yes Assessment & Plan - Problems (Diagnosis) (1) Cellulitis Onset Date: 02/25/18 Current Visit: Yes Status: Acute Plan: BL LE cellulitis most likely 2/2 to chronic swelling. Improving slowly -IV Meropenum for now -MRI negaitve for osteomylitis -Neo wrap and elevate legs. -Blood culture negative thus far Qualifiers: Site of cellulitis: extremity Site of cellulitis of extremity: lower extremity Laterality: unspecified laterality Qualified Code(s): L03.119 - Cellulitis of unspecified part of limb (2) UTI (urinary tract infection) Current Visit: No Status: Acute Plan: UA + for UTI -Urine culture + for ESBL -IV Merrem for now -PICC line placed -Pt will need placement Qualifiers: Urinary tract infection type: acute cystitis Hematuria presence: without hematuria Qualified Code(s): N30.00 - Acute cystitis without hematuria (3) Lymphedema Onset Date: 02/25/18 Current Visit: Yes Status: Chronic (4) Atrial fibrillation Onset Date: 01/04/18 Current Visit: No Status: Chronic Qualifiers: Atrial fibrillation type: chronic Qualified Code(s): I48.2 - Chronic atrial fibrillation (5) COPD (chronic obstructive pulmonary disease) Onset Date: 01/04/18 Current Visit: No Status: Chronic Qualifiers: COPD type: chronic bronchitis Chronic bronchitis type: mixed simple and mucopurulent Qualified Code(s): J41.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 (6) History of CVA (cerebrovascular accident) Onset Date: 01/04/18 Current Visit: No Status: Chronic (7) Hypertension Onset Date: 01/04/18 Current Visit: No Status: Chronic Qualifiers: Hypertension type: essential hypertension (8) Hyperthyroidism Onset Date: 01/04/18 Current Visit: No Status: Chronic (9) Obesity Onset Date: 01/04/18 Current Visit: No Status: Chronic Qualifiers: Obesity type: due to excess calories Obesity classification: adult class 3 (BMI >= 40) Serious obesity comorbidity presence: with serious comorbidity Body mass index: BMI 45.0-49.9 Qualified Code(s): E66.01 - Morbid (severe) obesity due to excess calories; Z68.42 - Body mass index (BMI) 45.0-49.9, adult (10) Metabolic alkalosis Current Visit: Yes Status: Acute Plan: Most likely 2.2 to HCTZ and lasix. Will hold for now -Will hold lasix as well for now due to Hypotension Discharge Plan: Intermediate Plan to discharge in: 48 Hours - Code Status/Comfort Care Code Status Assessed: Yes Critical Care: No
[2018-03-02 12:42] LABS: Arterial Blood Carboxyhemoglob 1.8 % (0-1.5); Blood Gas Oxyhemoglobin 90.2 % (94-97)
[2018-03-02 16:56] LABS: Potassium 3.7 mEq/L (3.6-5.0)
[2018-03-02] MEDS: RIVAROXABAN 20 MG TABLET PO SCH (17:01)
[2018-03-03] MEDS: Meropenem 1,000 MG in NA CHLORIDE 0.9% 100 ML IV SCH ×3 (00:32→17:13)
[2018-03-03 05:51] LABS: RBC Red Blood Cell Count 3.57 M/uL (3.86-4.86)
[2018-03-03 05:52] LABS: Absolute Lymphocytes (CBC) 1.7 K/uL (0.7-4.9); Absolute Monocytes 0.8 K/uL (0.1-1.3); Absolute Neutrophil 3.1 K/uL (1.8-8.0); Basophils % 0.5 % (0-1.3); Eosinophils % 3.9 % (0-4.4); Hematocrit 30.3 % (36.0-45.0); Lymphocytes % 28.5 % (15.3-44.8); MCH 26.8 pg (27.0-35.0); MCV 84.9 fL (80-100); MPV 8.8 fL (7.6-11.3); Monocytes % 13.5 % (3.3-12.3)
[2018-03-03 06:07] LABS: Albumin 2.4 g/dL (3.2-5.5); Bilirubin Total 0.8 mg/dL (0.3-1.2)
[2018-03-03 06:11] LABS: Potassium 3.7 mEq/L (3.6-5.0)
[2018-03-03] MEDS ORDERED: POTASSIUM 25 MEQ EFFERV TAB PO ONE (06:15)
[2018-03-03] MEDS: PANTOPRAZOLE 40MG TABLET PO SCH ×2 (06:30→17:14)
[2018-03-03] MEDS: INSULIN -REGULAR HUMAN 50 UNIT/0.5 ML ML SQ SCH ×4 (07:30→21:00)
[2018-03-03] MEDS: MEDIHONEY 44 ML TOPICAL TUBE TOP SCH (09:00)
[2018-03-03] MEDS: ISOSORBIDE MONO SR 60 MG TAB PO SCH (09:00)
[2018-03-03] MEDS: CARVEDILOL 25 MG TAB PO SCH ×2 (09:00→21:36)
[2018-03-03] MEDS: JUVEN PACKET PO SCH ×2 (10:12→21:00)
[2018-03-03] MEDS: LISINOPRIL 20 MG TAB PO SCH (10:13)
[2018-03-03] MEDS: CYANOCOBALAMIN 1,000 MCG TAB PO SCH (10:13)
[2018-03-03] MEDS: MONTELUKAST 10 MG TAB PO SCH (10:13)
--- NOTE | 2018-03-03 11:55 | P.PN ---
Subjective Date of Service: 03/03/18 Primary Care Provider: None Chief Complaint: Cellulitis Patient seen and examined at bedside with RN. Case discussed with family. Currently patient is doing well. States that she feels much better than before. Urine culture + for ESBL. Overnight pt was AAOx 3 but in AM during rounds pt was More Alert and oriented Review of Systems General: As per HPI Physical Examination - Vital Signs Temperature: 98.6 F Blood Pressure: 98/42 Pulse: 78 Respirations: 18 Pulse Ox (%): 93 - Physical Exam General: Alert, In no apparent distress HEENT: Atraumatic, PERRLA, EOMI Neck: Supple, JVD not distended Respiratory: Clear to auscultation bilaterally, Normal air movement Cardiovascular: Regular rate/rhythm, Normal S1 S2 Gastrointestinal: Normal bowel sounds, No tenderness Musculoskeletal: Erythema, Tenderness, Warmth (More Warm then before today) Integumentary: No rashes Neurological: Normal speech, Normal tone, Normal affect Lymphatics: No axilla or inguinal lymphadenopathy - Studies Medications List Reviewed: Yes Assessment & Plan - Problems (Diagnosis) (1) Metabolic alkalosis Current Visit: Yes Status: Acute Plan: elevated CO2. -Most likely 2.2 to HCTZ and lasix. Will hold for now -Will recheck luis antonio AM (2) Cellulitis Onset Date: 02/25/18 Current Visit: Yes Status: Acute Plan: BL LE cellulitis most likely 2/2 to chronic swelling. Improving slowly -IV Meropenum for now -MRI negaitve for osteomylitis -Neo wrap and elevate legs. -Blood culture negative thus far Qualifiers: Site of cellulitis: extremity Site of cellulitis of extremity: lower extremity Laterality: unspecified laterality Qualified Code(s): L03.119 - Cellulitis of unspecified part of limb (3) UTI (urinary tract infection) Current Visit: No Status: Acute Plan: UA + for UTI -Urine culture + for ESBL -IV Merrem day 03/01. -PICC line placed Qualifiers: Urinary tract infection type: acute cystitis Hematuria presence: without hematuria Qualified Code(s): N30.00 - Acute cystitis without hematuria (4) Lymphedema Onset Date: 02/25/18 Current Visit: Yes Status: Chronic (5) Atrial fibrillation Onset Date: 01/04/18 Current Visit: No Status: Chronic Qualifiers: Atrial fibrillation type: chronic Qualified Code(s): I48.2 - Chronic atrial fibrillation (6) COPD (chronic obstructive pulmonary disease) Onset Date: 01/04/18 Current Visit: No Status: Chronic Qualifiers: COPD type: chronic bronchitis Chronic bronchitis type: mixed simple and mucopurulent Qualified Code(s): J41.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 (7) History of CVA (cerebrovascular accident) Onset Date: 01/04/18 Current Visit: No Status: Chronic (8) Hypertension Onset Date: 01/04/18 Current Visit: No Status: Chronic Qualifiers: Hypertension type: essential hypertension (9) Hyperthyroidism Onset Date: 01/04/18 Current Visit: No Status: Chronic (10) Obesity Onset Date: 01/04/18 Current Visit: No Status: Chronic Qualifiers: Obesity type: due to excess calories Obesity classification: adult class 3 (BMI >= 40) Serious obesity comorbidity presence: with serious comorbidity Body mass index: BMI 45.0-49.9 Qualified Code(s): E66.01 - Morbid (severe) obesity due to excess calories; Z68.42 - Body mass index (BMI) 45.0-49.9, adult
[2018-03-03] MEDS: RIVAROXABAN 20 MG TABLET PO SCH (17:13)
[2018-03-03] MEDS: ACETAMINOPHEN 500 MG TAB PO PRN (18:00)
[2018-03-04] MEDS: Meropenem 1,000 MG in NA CHLORIDE 0.9% 100 ML IV SCH ×3 (01:34→17:23)
[2018-03-04 05:49] LABS: BUN Blood Urea Nitrogen 32 mg/dL (6-20); Bicarbonate 37 mEq/L (21-31); Glucose Level 97 mg/dL (65-120); Potassium 3.2 mEq/L (3.6-5.0); Sodium Level 143 mEq/L (135-145)
[2018-03-04] MEDS: KCL 20 MEQ/100 mL IVPB 20 MEQ/100 ML BAG IV SCH ×2 (06:35→09:38)
[2018-03-04] MEDS: INSULIN -REGULAR HUMAN 50 UNIT/0.5 ML ML SQ SCH ×4 (07:30→21:00)
[2018-03-04] MEDS: PANTOPRAZOLE 40MG TABLET PO SCH ×2 (08:31→17:24)
[2018-03-04] MEDS: MEDIHONEY 44 ML TOPICAL TUBE TOP SCH (09:00)
[2018-03-04] MEDS: ISOSORBIDE MONO SR 60 MG TAB PO SCH (09:00)
[2018-03-04] MEDS: CARVEDILOL 25 MG TAB PO SCH ×2 (09:00→20:56)
[2018-03-04] MEDS: CYANOCOBALAMIN 1,000 MCG TAB PO SCH (09:37)
[2018-03-04] MEDS: LISINOPRIL 20 MG TAB PO SCH (09:37)
[2018-03-04] MEDS: MONTELUKAST 10 MG TAB PO SCH (09:38)
[2018-03-04] MEDS: JUVEN PACKET PO SCH ×2 (09:39→21:00)
--- NOTE | 2018-03-04 13:13 | P.PN ---
Subjective Date of Service: 03/04/18 Primary Care Provider: None Chief Complaint: Cellulitis Patient seen and examined at bedside with RN. Case discussed with family. Currently patient is doing well. States that she feels much better than before. Urine culture + for ESBL. Overnight pt was AAOx 3 but in AM during rounds pt was More Alert and oriented. Pending Placement Review of Systems General: As per HPI Physical Examination - Vital Signs Temperature: 98.1 F Blood Pressure: 119/61 Pulse: 80 Respirations: 26 Pulse Ox (%): 94 - Physical Exam General: Alert, In no apparent distress, Oriented x3 HEENT: Atraumatic, PERRLA, EOMI Neck: Supple, JVD not distended Respiratory: Clear to auscultation bilaterally, Normal air movement Cardiovascular: Regular rate/rhythm, Normal S1 S2 Gastrointestinal: Normal bowel sounds, No tenderness Musculoskeletal: No tenderness Integumentary: No rashes, Tenderness/swelling, Erythema, Warmth Neurological: Normal speech, Normal tone, Normal affect Lymphatics: No axilla or inguinal lymphadenopathy - Studies Medications List Reviewed: Yes Assessment & Plan - Problems (Diagnosis) (1) Metabolic alkalosis Current Visit: Yes Status: Acute Plan: elevated CO2. -Most likely 2.2 to HCTZ and lasix. Will hold for now -Will recheck luis antonio AM (2) Cellulitis Onset Date: 02/25/18 Current Visit: Yes Status: Acute Plan: BL LE cellulitis most likely 2/2 to chronic swelling. Improving slowly -IV Meropenum for now -MRI negaitve for osteomylitis -Neo wrap and elevate legs. -Blood culture negative thus far Qualifiers: Site of cellulitis: extremity Site of cellulitis of extremity: lower extremity Laterality: unspecified laterality Qualified Code(s): L03.119 - Cellulitis of unspecified part of limb (3) UTI (urinary tract infection) Current Visit: No Status: Acute Plan: UA + for UTI -Urine culture + for ESBL -IV Merrem day 03/28. -PICC line placed Qualifiers: Urinary tract infection type: acute cystitis Hematuria presence: without hematuria Qualified Code(s): N30.00 - Acute cystitis without hematuria (4) Lymphedema Onset Date: 02/25/18 Current Visit: Yes Status: Chronic (5) Atrial fibrillation Onset Date: 01/04/18 Current Visit: No Status: Chronic Qualifiers: Atrial fibrillation type: chronic Qualified Code(s): I48.2 - Chronic atrial fibrillation (6) COPD (chronic obstructive pulmonary disease) Onset Date: 01/04/18 Current Visit: No Status: Chronic Qualifiers: COPD type: chronic bronchitis Chronic bronchitis type: mixed simple and mucopurulent Qualified Code(s): J41.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 (7) History of CVA (cerebrovascular accident) Onset Date: 01/04/18 Current Visit: No Status: Chronic (8) Hypertension Onset Date: 01/04/18 Current Visit: No Status: Chronic Qualifiers: Hypertension type: essential hypertension (9) Hyperthyroidism Onset Date: 01/04/18 Current Visit: No Status: Chronic (10) Obesity Onset Date: 01/04/18 Current Visit: No Status: Chronic Qualifiers: Obesity type: due to excess calories Obesity classification: adult class 3 (BMI >= 40) Serious obesity comorbidity presence: with serious comorbidity Body mass index: BMI 45.0-49.9 Qualified Code(s): E66.01 - Morbid (severe) obesity due to excess calories; Z68.42 - Body mass index (BMI) 45.0-49.9, adult
[2018-03-04] MEDS: RIVAROXABAN 20 MG TABLET PO SCH (17:24)
[2018-03-04] MEDS ORDERED: KCL 20 MEQ/100 mL IVPB 20 MEQ/100 ML BAG IV SCH (18:00)
[2018-03-05] MEDS: Meropenem 1,000 MG in NA CHLORIDE 0.9% 100 ML IV SCH ×2 (01:04→08:08)
[2018-03-05 05:33] LABS: BUN Blood Urea Nitrogen 32 mg/dL (6-20); Bicarbonate 34 mEq/L (21-31); Glucose Level 91 mg/dL (65-120); Magnesium 1.7 mg/dL (1.8-2.5); Potassium 3.6 mEq/L (3.6-5.0); Sodium Level 141 mEq/L (135-145)
[2018-03-05] MEDS ORDERED: POTASSIUM 25 MEQ EFFERV TAB PO ONE (06:00)
[2018-03-05] MEDS ORDERED: MAGNESIUM SULFATE 1 gm IVPB 1 GM/100 ML BAG IV ONE (06:00)
[2018-03-05] MEDS: INSULIN -REGULAR HUMAN 50 UNIT/0.5 ML ML SQ SCH ×2 (07:30→11:30)
[2018-03-05] MEDS: GABAPENTIN 300 MG CAP PO PRN (08:08)
[2018-03-05] MEDS: JUVEN PACKET PO SCH (08:08)
[2018-03-05] MEDS: LISINOPRIL 20 MG TAB PO SCH (08:09)
[2018-03-05] MEDS: CYANOCOBALAMIN 1,000 MCG TAB PO SCH (08:09)
[2018-03-05] MEDS: MONTELUKAST 10 MG TAB PO SCH (08:09)
[2018-03-05] MEDS: ISOSORBIDE MONO SR 60 MG TAB PO SCH (08:10)
[2018-03-05] MEDS: CARVEDILOL 25 MG TAB PO SCH (08:10)
[2018-03-05] MEDS: PANTOPRAZOLE 40MG TABLET PO SCH (08:12)
[2018-03-05] MEDS: MEDIHONEY 44 ML TOPICAL TUBE TOP SCH (08:13)
[2018-03-05 08:56] VITALS: O2SAT 95
[2018-03-05 11:58] VITALS: BP 100/58; TEMP 98
--- NOTE | 2018-03-05 15:38 | P.DS ---
Admission Date: 02/27/18 Discharge Date: 03/05/18 Primary Care Provider: Amberly Disposition: TRANSFER TO SKILLED NURSING Discharge Condition: GOOD Reason for Admission: Cellulitis - Problems (1) Metabolic alkalosis Status: Acute (2) Cellulitis Onset Date: 02/25/18 Status: Acute Qualifiers: Site of cellulitis: extremity Site of cellulitis of extremity: lower extremity Laterality: unspecified laterality Qualified Code(s): L03.119 - Cellulitis of unspecified part of limb (3) UTI (urinary tract infection) Status: Acute Qualifiers: Urinary tract infection type: acute cystitis Hematuria presence: without hematuria Qualified Code(s): N30.00 - Acute cystitis without hematuria (4) Lymphedema Onset Date: 02/25/18 Status: Chronic (5) Atrial fibrillation Onset Date: 01/04/18 Status: Chronic Qualifiers: Atrial fibrillation type: chronic Qualified Code(s): I48.2 - Chronic atrial fibrillation (6) COPD (chronic obstructive pulmonary disease) Onset Date: 01/04/18 Status: Chronic Qualifiers: COPD type: chronic bronchitis Chronic bronchitis type: mixed simple and mucopurulent Qualified Code(s): J41.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 (7) History of CVA (cerebrovascular accident) Onset Date: 01/04/18 Status: Chronic (8) Hypertension Onset Date: 01/04/18 Status: Chronic Qualifiers: Hypertension type: essential hypertension (9) Hyperthyroidism Onset Date: 01/04/18 Status: Chronic (10) Obesity Onset Date: 01/04/18 Status: Chronic Qualifiers: Obesity type: due to excess calories Obesity classification: adult class 3 (BMI >= 40) Serious obesity comorbidity presence: with serious comorbidity Body mass index: BMI 45.0-49.9 Qualified Code(s): E66.01 - Morbid (severe) obesity due to excess calories; Z68.42 - Body mass index (BMI) 45.0-49.9, adult Brief History of Present Illness: 72-year-old female with significant past medical history of hypertension, AFib, COPD, history of CVA, who presented to the ER complaining of having some bilateral swelling has gotten worse over 1-2 weeks. Patient stated that she started noticing a healer sore on the right heel which started hurting her more and her pain was radiating down from her breast leg all the way up to her pelvis area. Patient does decided to come to the ER to get a further checked out. Patient denies having any nausea vomiting fever chills or any other associated symptoms at this time. Aside from bilateral swelling and pain. Patient does not have any other complaints to offer. Patient is a poor historian who live by herself at home and does not have a good followup as well. Patient it was a [facility] for rehab however was discharged from the [facility] when she was appropriate from rehab. In the ER patient was found to have bilateral lower extremity cellulitis with mildly elevated white count and thus was referred over for admission for further care. Hospital Course: Overall during the hospital stay patient remained stable The patient was initially admitted to the hospital for bilateral lower extremity cellulitis along with urinary tract infection. Patient was initially kept on IV antibiotics. Cellulitis had marked improvement. Patient was found to have ESBL in her urine. PICC line was placed and patient was in need of getting IV antibiotics. Patient is a chronic colonizer of ESBL. Patient was started on IV we are pending here in the hospital and will be continued outpatient as well for total of 10 days. A senior living facility referral was made and patient was accepted at [facility] and thus was transferred there for further care. Of note while patient was here in the hospital patient also doubled contraction alkalosis secondary to her losartan and Lasix. Both of which were held here in the hospital and patient improved drastically. Patient was asked to stop taking those here in the hospital and at home. Patient also has hypotension while here in the hospital and thus holding her losartan will help with her hypotension. Vital Signs/Physical Exam: Temp Pulse Resp BP Pulse Ox 98 F 74 18 100/58 L 93 03/05/18 11:57 03/05/18 11:57 03/05/18 11:57 03/05/18 11:57 03/05/18 11:57 General: Alert, In no apparent distress HEENT: Atraumatic, PERRLA, EOMI Neck: Supple, JVD not distended Respiratory: Clear to auscultation bilaterally, Normal air movement Cardiovascular: Regular rate/rhythm, Normal S1 S2 Gastrointestinal: Normal bowel sounds, No tenderness Musculoskeletal: No tenderness Integumentary: No rashes Neurological: Normal speech, Normal tone, Normal affect Lymphatics: No axilla or inguinal lymphadenopathy Laboratory Data at Discharge: WBC 5.9 K/uL (4.3-10.9) D 03/03/18 05:00 Hgb 9.6 g/dL (12.0-15.0) L 03/03/18 05:00 Hct 30.3 % (36.0-45.0) L 03/03/18 05:00 Plt Count 191 K/uL (152-406) 03/03/18 05:00 Sodium 141 mEq/L (135-145) 03/05/18 04:45 Potassium 3.6 mEq/L (3.6-5.0) 03/05/18 04:45 BUN 32 mg/dL (6-20) H 03/05/18 04:45 Creatinine 0.63 mg/dL (0.44-1.00) 03/05/18 04:45 Glucose 91 mg/dL (65-120) 03/05/18 04:45 Phosphorus 3.0 mg/dL (2.5-4.3) 03/05/18 04:45 Magnesium 1.7 mg/dL (1.8-2.5) L 03/05/18 04:45 Total Bilirubin 0.8 mg/dL (0.3-1.2) 03/03/18 05:00 AST 21 IU/L (10-42) 03/03/18 05:00 ALT 13 IU/L (10-60) 03/03/18 05:00 Alkaline Phosphatase 27 IU/L (42-121) L 03/03/18 05:00 Home Medications: Carvedilol [Coreg*] 25 mg PO BID 06/20/15 Tramadol HCl [Ultram] 50 mg PO BID PRN 06/20/15 Isosorbide Mononitrate [Isosorbide Mononitrate ER] 60 mg PO DAILY #30 tab.er.24h 01/11/18 Pantoprazole [Protonix Tab*] 40 mg PO DAILYAC #30 tab 01/11/18 Rivaroxaban [Xarelto*] 20 mg PO DAILY #30 tablet 01/11/18 Cyanocobalamin (Vitamin B-12) [Vitamin B-12] 1 tab PO DAILY 02/24/18 Furosemide [Lasix*] 40 mg PO BID 02/24/18 Gabapentin 600 mg PO QIDP PRN 02/24/18 Lisinopril/Hydrochlorothiazide [Zestoretic 20-25 mg Tablet] 1 tab PO DAILY 02/24 Mometasone/Formoterol [Dulera 100 Mcg/5 Mcg Inhaler] 2 puff IH DAILY 02/24/18 Montelukast Sodium 10 mg PO DAILY 02/24/18 Potassium Chloride [Klor-Con] 10 meq PO DAILY 02/24/18 Meropenem [Merrem 1 GM/100 ML NS IVPB] 1 gm IV DAILY #4 bag 03/05/18 New Medications: Meropenem [Merrem 1 GM/100 ML NS IVPB] 1 gm IV DAILY #4 bag Diet: Regular Activity: Ad jennifer Followup: Tenzin Shay MD [ACTIVE - CAN ADMIT] -
== END 2018-03-05 14:00 | DRG 603 ==
LOC: ER 16:07 → INTOOBSV 18:14 → ERHOLD 18:14 → 4TH 19:29 → OBSVTOIN 02-27 12:15
PROVIDERS: ADMIT Hospitalist; ATTEND Family Medicine
DX: L03.116 Cellulitis of left lower limb (principal); N39.0 Urinary tract infection, site not specified; E87.3 Alkalosis; L03.115 Cellulitis of right lower limb; B96.20 Unspecified Escherichia coli [E. coli] as the cause of diseases classified elsewhere; Z16.12 Extended spectrum beta lactamase (ESBL) resistance; I95.9 Hypotension, unspecified; I89.0 Lymphedema, not elsewhere classified; I48.2 Chronic atrial fibrillation; J41.8 Mixed simple and mucopurulent chronic bronchitis; I10 Essential (primary) hypertension; E66.01 Morbid (severe) obesity due to excess calories; Z68.31 Body mass index [BMI] 31.0-31.9, adult; E05.90 Thyrotoxicosis, unspecified without thyrotoxic crisis or storm; Z86.73 Personal history of transient ischemic attack (TIA), and cerebral infarction without residual deficits
CPT/HCPCS: 36415; 71045; 80048; 80053; 81003; 81015; 82805; 82962; 83735; 84100; 84132; 85025; 86140; 87040; 87077; 87086; 87088; 87186; 96365; 96375; 97163; 99285; G0378; J2405; J2543; J3475

== ENCOUNTER 2018-04-03 16:13 | Emergency (ER) | payer OTHER ==
[2018-04-03] MEDS ORDERED: NA CHLORIDE 0.9% 1,000 ML ONE (17:14)
[2018-04-03 17:35] LABS: Absolute Lymphocytes (CBC) 1.5 K/uL (0.7-4.9); Absolute Monocytes 0.6 K/uL (0.1-1.3); Basophils % 0.4 % (0-1.3); Eosinophils % 1.1 % (0-4.4); MCH 27.5 pg (27.0-35.0); MCV 83.3 fL (80-100); MPV 9.1 fL (7.6-11.3); Monocytes % 10.1 % (3.3-12.3); RBC Red Blood Cell Count 3.01 M/uL (3.86-4.86)
--- NOTE | 2018-04-03 17:44 | RAD REPORT ---
EXAM DESCRIPTION: Stuart Single View04/03/2018 5:32 pm CLINICAL HISTORY: Chest pain COMPARISON: February 2018 FINDINGS: The left hemidiaphragm remains elevated. The lungs appear clear of acute infiltrate. The heart is mildly to moderately enlarged IMPRESSION: No acute abnormalities displayed
[2018-04-03 17:53] LABS: Protime INR 4.3
[2018-04-03 18:02] LABS: Albumin 2.4 g/dL (3.2-5.5); Bilirubin Direct 0.7 mg/dL (0-0.2); Bilirubin Total 1.6 mg/dL (0.3-1.2); Protein, Total 6.4 g/dL (6.0-8.3)
--- NOTE | 2018-04-03 18:14 | RAD REPORT ---
EXAM DESCRIPTION: CT - Head Brain Wo Cont - 04/03/2018 6:06 pm CLINICAL HISTORY: Drowsiness COMPARISON: 2007 TECHNIQUE: Computed axial tomography of the head was obtained. IV contrast was not requested. All CT scans are performed using dose optimization technique as appropriate and may include automated exposure control or mA/KV adjustment according to patient size. FINDINGS: An intracranial bleed is not seen . The ventricles are normal in caliber. No extra-axial fluid collection is noted. Fluid within the sinuses/ mastoids is not seen. IMPRESSION: No acute intracranial abnormality is seen. If patient's symptoms persist MRI of the bra in would be recommended.
[2018-04-03 19:03] LABS: Urine Blood NEGATIVE (NEG); Urine Glucose NEGATIVE (NEG); Urine Protein NEGATIVE (NEG); Urine Specific Gravity 1.015 (1.005-1.030); Urine pH 5.5 (5.0-7.0)
[2018-04-03 19:15] LABS: Barbiturates NEGATIVE (NEGATIVE); Benzodiazepines NEGATIVE (NEGATIVE); Cocaine NEGATIVE (NEGATIVE); METHAMPHETAM NEGATIVE (NEGATIVE); Opiates NEGATIVE (NEGATIVE); Phencyclidine NEGATIVE (NEGATIVE); THC Cannibis NEGATIVE (NEGATIVE)
[2018-04-03 19:22] LABS: Urine Bacteria 20-50 /HPF (<20); Urine Culture Reflex Order REFLEXED; Urine RBC <5 /HPF (NONE SEEN)
[2018-04-03] MEDS ORDERED: PANTOPRAZOLE 40 MG INJ ONE (20:30)
[2018-04-03] MEDS ORDERED: NA CHLORIDE 0.9% 250 ML ONE ×2 (20:31→23:03)
[2018-04-03] MEDS ORDERED: NA CHLORIDE 0.9% 500 ML ONE (20:31)
[2018-04-03 22:06] LABS: Hematocrit 23.8 % (36.0-45.0)
[2018-04-03] MEDS ORDERED: CEFTRIAXONE/SWI 1gm 1 GM/10 ML SYR ONE (22:11)
--- NOTE | 2018-04-03 22:38 | ER ---
Nurse's Notes [facility] Name: Yelena Flores Age: 72 yrs Sex: Female : 1945 Arrival Date: 04/03/2018 Time: 16:13 Bed 5 Private MD: Diagnosis: Urinary tract infection, site not specified;Gastrointestinal hemorrhage, unspecified;Altered mental status, unspecified;Elevated INR;Elevated troponin Presentation: 04/03 16:13 Presenting complaint: EMS states: Staff reports that pt recently treated for UTI, ph decreased appetite x 2 days, AMS that began around noon today, BP low 80s/40s, BGL 144, IV established 250 mL of NS given. Transition of care: patient was not received from another setting of care. Onset of symptoms was April 03, 2018. Risk Assessment: Do you want to hurt yourself or someone else? Patient reports no desire to harm self or others. Initial Sepsis Screen: Does the patient meet any 2 criteria? Mean Arterial Pressure (MAP) < 65. Altered Mental Status. Yes. Initial Sepsis Screen: Does the patient have a suspected source of infection? Yes: Dysuria/Frequency/Urgency/UTI. 16:13 Method Of Arrival: EMS: [facility] ph 16:13 Acuity: EMMA 2 ph 16:44 Care prior to arrival: IV initiated. 20 GA, in the right forearm, Glucose check: 145. ph Triage Assessment: 16:34 General: Appears in no apparent distress. ill, unkempt, Behavior is cooperative, quiet. aj Pain: Denies pain. Neuro: Level of Consciousness is awake, confused, Oriented to person. Cardiovascular: Edema is 2+ to left midcalf, left ankle, left foot, right midcalf, right ankle and right foot. Respiratory: Airway is patent Respiratory effort is even, unlabored, Respiratory pattern is regular, symmetrical. Derm: Skin is intact, is healthy with good turgor. Historical: - Allergies: 16:33 Codeine; ph - Home Meds: 16:33 furosemide 20 mg oral tab 1 tab once daily [Active]; gabapentin 400 mg oral cap 2 cap 3 ph times per day [Active]; isosorbide mononitrate 60 mg Oral Tb24 1 tab once daily [Active]; carvedilol 25 mg Oral tab 1 tab 2 times per day [Active]; tramadol 50 mg Oral tab 1 tab twice a day [Active]; potassium chloride 10 mEq oral TbER 1 tab once daily [Active]; Diflucan 50 mg Oral tab 1 tab once daily for Candidal Urinary Tract Infection [Active]; zinc sulfate 220 mg Oral tab [Active]; ProMod Protein Oral liqd [Active]; ascorbic acid (vitamin C) 500 mg oral tab twice a day [Active]; nitroglycerin 0.4 mg SL subl 1 tab every 5 minutes for Angina [Active]; cyanocobalamin (vitamin B-12) 1,000 mcg oral tab daily [Active]; Dulera 100-5 mcg/actuation inhalation HFAA 2 puffs daily [Active]; montelukast 10 mg oral tab 1 tab once daily [Active]; rivorobaxaban 10 mg daily [Active]; omeprazole 20 mg Oral cpDR 1 cap once daily [Active]; - PMHx: 16:33 CHF; CVA; Hypertension; Lupus; neuropathy; UTI; Pressure Ulcer (buttock); Pressure ph Ulcer (right hip); - Immunization history:: Adult Immunizations unknown. - Social history:: Smoking status: Patient/guardian denies using tobacco. - Ebola Screening: : Patient negative for fever greater than or equal to 101.5 degrees Fahrenheit, and additional compatible Ebola Virus Disease symptoms Patient denies exposure to infectious person Patient denies travel to an Ebola-affected area in the 21 days before illness onset No symptoms or risks identified at this time. Screenin:43 Abuse screen: Denies threats or abuse. Denies injuries from another. Nutritional ph screening: No deficits noted. Tuberculosis screening: No symptoms or risk factors identified. Fall Risk No fall in past 12 months (0 pts). No secondary diagnosis (0 pts). IV access (20 points). Ambulatory Aid- None/Bed Rest/Nurse Assist (0 pts). Gait- Weak (10 pts.). Mental Status- Overestimates/Forgets Limitations (15 pts.). Total Camacho Fall Scale indicates High Risk Score (45 or more points). Fall prevention measures have been instituted. Side Rails Up X 2 Placed Close to Nursing Station Frequent Obs/Assessments Occuring Family Present and informed to notify staff if the need to leave the bedside As available patient and family educated on Fall Prevention Program and Strategies. 20:26 Patient has been NPO before screening. The patient is alert, able to follow commands. rv The patient does not exhibit slurred or garbled speech The patient is not exhibiting difficulty speaking. The patient does not exhibit difficulty understanding words. The patient is able to swallow own secretions with no drooling or need for suction. Patient tolerated one teaspoon of water. No drooling, immediate coughing, gurgling, or clearing of the throat was noted. The patient tolerated 90mL of water. No drooling, immediate coughing, gurgling, or clearing of the throat was noted. The patient passed the bedside swallow screening. Oral medications may be given as ordered. Contact Physician for further diet orders. Assessment: 16:45 General: Appears in no apparent distress. uncomfortable, Behavior is calm, cooperative, ph appropriate for age, Denies fever. Pain: Complains of pain in head. Neuro: Level of Consciousness is awake, obeys commands, Oriented to person, place, situation, pt oriented to person, place, and situation, also recognizes family members but appears slow to respond. Moves all extremities. Pupils are pinpoint, Reports headache. Cardiovascular: Denies chest pain, nausea, shortness of breath, Capillary refill < 3 seconds in bilateral fingers Patient's skin is warm and dry. Edema is 3+ to left midcalf, left ankle, left foot, right midcalf, right ankle and right foot. Respiratory: Airway is patent Respiratory effort is even, unlabored, Respiratory pattern is regular, symmetrical. GI: No signs and/or symptoms were reported involving the gastrointestinal system. Derm: Skin is fragile, is thin, Skin is dry, Skin is normal, Skin temperature is warm. Musculoskeletal: Circulation, motion, and sensation intact. Range of motion: intact in all extremities. 17:52 Reassessment: Jimmie Du NP notified of critical lab values, 51.5 PT and INR 4.30.ss 18:50 Reassessment: Patient appears in no apparent distress at this time. Patient and/or ph family updated on plan of care and expected duration. Pain level reassessed. Pt awake and alert, oriented to person, place, and situation. Pt straight cathed to obtain urine sample, tolerated well, when inserting catheter pt was noted to have had a bowel movement, soft and brown in appearance, guaiac test preformed per request of ERP, guaiac positive. 18:55 Derm: Decubitus located on sacrum approximately 2.6 cm to 7.5 cm is stage III. ph 18:56 Derm: Decubitus located on left hip(s) approximately > 20 cm is stage II. ph 19:30 Reassessment: Patient appears in no apparent distress at this time. Patient and/or rv family updated on plan of care and expected duration. Pain level reassessed. received patient alert and awake, lying on bed. vitals are stable. 21:35 Reassessment: Patient appears in no apparent distress at this time. Patient and/or rv family updated on plan of care and expected duration. Pain level reassessed. awaiting for manufacturing engineer to extract blood specimen. patient is for blood transfusion. 23:52 Reassessment: Patient appears in no apparent distress at this time. Patient and/or rv family updated on plan of care and expected duration. Pain level reassessed. patient is stable and comfortable lying on bed. awake. 23:53 Reassessment: report given to Betty Diop in [facility] in [place]. awaiting for rv EMS transport. 04/04 01:00 Reassessment: blood transfusion completed. patient is stable and comfortable. rv 01:43 Reassessment: Patient appears in no apparent distress at this time. Patient and/or bp family updated on plan of care and expected duration. Pain level reassessed. PATIENT IS COMFORTABLE. ASLEEP. EMS CAME IN TO TRANSFER PT TO [facility]. 01:56 Reassessment: patient on transport to [facility] via EMS ground. rv Vital Signs: 04/03 16:17 BP 103 / 44; Pulse 65; Resp 20; Temp 97.8; Pulse Ox 95% on R/A; Weight 79.38 kg; Height aj 5 ft. 1 in. (154.94 cm); 17:00 BP 107 / 84; Pulse 64; Resp 16; Pulse Ox 98% on 2 lpm NC; ph 17:30 BP 112 / 69; Pulse 69; Resp 18; Pulse Ox 99% on 2 lpm NC; ph 18:30 BP 90 / 46; Pulse 62; Resp 18; Pulse Ox 98% on 2 lpm NC; ph 18:52 BP 99 / 54; Pulse 64; Resp 18; Pulse Ox 100% on 2 lpm NC; ph 19:00 BP 100 / 71; Pulse 74; Resp 19; Pulse Ox 99% ; bp 20:25 BP 107 / 66; Pulse 74; Resp 99; Pulse Ox 97% on R/A; rv 21:36 BP 117 / 87; Pulse 94; Resp 16; Pulse Ox 96% on R/A; rv 06 00:22 BP 102 / 43; Pulse 71; Resp 17; Temp 98.5(TE); Pulse Ox 100% ; rv 01:42 BP 95 / 45; Pulse 74; Resp 18; Pulse Ox 100% on 2 lpm NC; bp 04/03 16:17 Body Mass Index 33.07 (79.38 kg, 154.94 cm) ED Course: 04/03 16:13 Patient arrived in ED. ph 16:17 Triage completed. ph 16:17 Arm band placed on left wrist. Patient placed in an exam room, on a stretcher, on manager cardiac cath, on pulse oximetry. 16:21 Ricardo Carreon PA is PHCP. jr8 16:21 Hola Roberts MD is Attending Physician. jr8 16:42 Julia Martinez RN is Primary Nurse. ph 16:44 Patient has correct armband on for positive identification. Bed in low position. Call ph light in reach. Side rails up X2. nurse monitoring on. Pulse ox on. NIBP on. Warm blanket given. 17:17 Initial lab(s) drawn, by me, sent to lab. First set of blood cultures drawn by me, by dh3 venipuncture 23G to left ac. 17:28 X-ray completed. Portable x-ray completed in exam room. Patient tolerated procedure la2 well. 17:29 Chest Single View XRAY In Process Unspecified. EDMS 17:45 PHCP role handed off by Ricardo Carreon PA pm1 17:45 Jimmie Du NP is PHCP. pm1 17:[address] mw3 18:05 CT Head Brain wo Cont In Process Unspecified. EDMS 22:10 Notified Nurse Practitioner and/or Physician [employer] Gauger of a critical lab result(s), Hgb bb of 7.8 P Ana Laura CRAIG notified. 23:53 No provider procedures requiring assistance completed. rv 04/04 01:53 Patient transferred, IV remains in place. bp Administered Medications: 04/03 16:30 Drug: NS 0.9% (30 ml/kg) 30 ml/kg Route: IV; Rate: bolus; Site: right forearm; ph 19:03 Drug: NS 0.9% (30 ml/kg) 30 ml/kg Route: IV; Rate: bolus; Site: right wrist; ph 04/04 01:55 Follow up: IV Status: Completed infusion bp 04/03 20:40 Drug: NS 0.9% 250 ml Route: IV; Rate: bolus; Site: right forearm; rv 21:39 Follow up: IV Status: Completed infusion rv 20:40 Drug: ProTONIX 40 mg Route: IVP; Site: right forearm; rv 21:38 Follow up: Response: No adverse reaction rv 20:40 Drug: ProTONIX 8 mg/hr Route: IV; Rate: 25 ml/hr; Site: right forearm; rv 21:38 Follow up: Response: No adverse reaction rv 04/04 01:54 Follow up: IV Status: Infusion continued upon transfer bp 04/03 22:00 Drug: Rocephin 1 grams Route: IV; Rate: calculated rate; Site: right forearm; rv 04/04 01:54 Follow up: IV Status: Completed infusion bp Outcome: 04/03 22:38 ER care complete, transfer ordered by MD. pm1 23:54 Transferred by ground EMS to [facility]. rv 23:54 Condition: stable 23:54 Discharge instructions given to patient, Instructed on the need for transfer. 04/04 01:57 Patient left the ED. rv Signatures: Dispatcher [employer] EDMS Minna Holguin RN RN aj Ballard, Brenda, RN RN bb Smirch, Shelby, RN RN ss Roszak, Josh, PA PA jr8 Julia Martinez RN RN ph Jimmie Du, [employer] BUILD ENGINEER pm1 Vidhi Willis 3 Jena Tenorio az2 Robbie Pereyra RN RN bp Willis, Michelle 3 Amador Reyes RN RN rv Corrections: (The following items were deleted from the chart) 04/03 16:36 16:17 BP 103 / 44; Pulse 65bpm; Resp 20bpm; Pulse Ox 95% RA; Temp 97.8F; ph aj 18:55 18:50 Reassessment: Patient appears in no apparent distress at this time. Patient ph and/or family updated on plan of care and expected duration. Pain level reassessed. Pt awake and alert, oriented to person, place, and situation. Pt straight cathed to obtain urine sample, tolerated well, when inserting catheter pt was noted to have had a bowel movement, soft and brown in appearance, guaiac test preformed per request of ERP, guaiac positive. ph
--- NOTE | 2018-04-03 22:39 | EDPHYS ---
Physician Documentation [facility] Name: Yelena Flores Age: 72 yrs Sex: Female : 1945 Arrival Date: 04/03/2018 Time: 16:13 Bed 5 Private MD: ED Physician Hola Roberts HPI: 04/03 17:02 This 72 yrs old Black Female presents to ER via EMS with complaints of Altered Mental jr8 Status. 17:02 The patient presents with confusion, decreased mental status, decreased responsiveness. jr8 Onset: The symptoms/episode began/occurred acutely, today. Possible causes: unknown. Associated signs and symptoms: The patient has no apparent associated signs or symptoms. Current symptoms: In the emergency department the patient's symptoms have improved, mildly. Patient's baseline: Neuro: alert and fully oriented, Motor: no deficits, Ambulation: walks without assistance, Speech: normal. The patient has not experienced similar symptoms in the past. The patient has not recently seen a physician. Historical: - Allergies: 16:33 Codeine; ph - Home Meds: 16:33 furosemide 20 mg oral tab 1 tab once daily [Active]; gabapentin 400 mg oral cap 2 cap 3 ph times per day [Active]; isosorbide mononitrate 60 mg Oral Tb24 1 tab once daily [Active]; carvedilol 25 mg Oral tab 1 tab 2 times per day [Active]; tramadol 50 mg Oral tab 1 tab twice a day [Active]; potassium chloride 10 mEq oral TbER 1 tab once daily [Active]; Diflucan 50 mg Oral tab 1 tab once daily for Candidal Urinary Tract Infection [Active]; zinc sulfate 220 mg Oral tab [Active]; ProMod Protein Oral liqd [Active]; ascorbic acid (vitamin C) 500 mg oral tab twice a day [Active]; nitroglycerin 0.4 mg SL subl 1 tab every 5 minutes for Angina [Active]; cyanocobalamin (vitamin B-12) 1,000 mcg oral tab daily [Active]; Dulera 100-5 mcg/actuation inhalation HFAA 2 puffs daily [Active]; montelukast 10 mg oral tab 1 tab once daily [Active]; rivorobaxaban 10 mg daily [Active]; omeprazole 20 mg Oral cpDR 1 cap once daily [Active]; - PMHx: 16:33 CHF; CVA; Hypertension; Lupus; neuropathy; UTI; Pressure Ulcer (buttock); Pressure ph Ulcer (right hip); - Immunization history:: Adult Immunizations unknown. - Social history:: Smoking status: Patient/guardian denies using tobacco. - Ebola Screening: : Patient negative for fever greater than or equal to 101.5 degrees Fahrenheit, and additional compatible Ebola Virus Disease symptoms Patient denies exposure to infectious person Patient denies travel to an Ebola-affected area in the 21 days before illness onset No symptoms or risks identified at this time. ROS: 17:02 Eyes: Negative for injury, pain, redness, and discharge, ENT: Negative for injury, jr8 pain, and discharge, Neck: Negative for injury, pain, and swelling, Cardiovascular: Negative for chest pain, palpitations, and edema, Respiratory: Negative for shortness of breath, cough, wheezing, and pleuritic chest pain, Abdomen/GI: Negative for abdominal pain, nausea, vomiting, diarrhea, and constipation, Back: Negative for injury and pain, MS/Extremity: Negative for injury and deformity, Skin: Negative for injury, rash, and discoloration. 17:02 Neuro: Positive for altered mental status, weakness. Exam: 17:02 Head/Face: Normocephalic, atraumatic. ENT: Nares patent. No nasal discharge, no jr8 septal abnormalities noted. Tympanic membranes are normal and external auditory canals are clear. Oropharynx with no redness, swelling, or masses, exudates, or evidence of obstruction, uvula midline. Mucous membranes moist. Neck: Trachea midline, no thyromegaly or masses palpated, and no cervical lymphadenopathy. Supple, full range of motion without nuchal rigidity, or vertebral point tenderness. No Meningismus. Chest/axilla: Normal chest wall appearance and motion. Nontender with no deformity. No lesions are appreciated. Cardiovascular: Regular rate and rhythm with a normal S1 and S2. No gallops, murmurs, or rubs. Normal PMI, no JVD. No pulse deficits. Respiratory: Lungs have equal breath sounds bilaterally, clear to auscultation and percussion. No rales, rhonchi or wheezes noted. No increased work of breathing, no retractions or nasal flaring. Abdomen/GI: Soft, non-tender, with normal bowel sounds. No distension or tympany. No guarding or rebound. No evidence of tenderness throughout. Back: No spinal tenderness. No costovertebral tenderness. Full range of motion. Skin: Warm, dry with normal turgor. Normal color with no rashes, no lesions, and no evidence of cellulitis. MS/ Extremity: Pulses equal, no cyanosis. Neurovascular intact. Full, normal range of motion. 17:02 Eyes: Periorbital structures: appear normal, Pupils: equal, round, and reactive to light and accomodation, right pupil is approximately 2 mm(s), left pupil is approximately 2 mm(s), Extraocular movements: intact throughout, Conjunctiva: normal, Corneas: are normal, Sclera: no appreciated abnormality, Anterior chamber: normal, Lids and lashes: appear normal. 17:02 Neuro: Orientation: to person, place, situation, Mentation: able to follow commands, slow to respond, Memory: is normal, Cranial nerves: grossly normal, Cerebellar function: is grossly normal, Motor: moves all fours, strength is 5/5 in all extremities, Sensation: is normal, Gait: not tested. seizure activity, is not displayed by the patient, Abnormal movements: there are no abnormal movements. 19:12 Abdomen/GI: Rectal exam: Stool: guaiac positive, loose, dark brown . pm1 19:12 Skin: Large stage 1/2 right hip and gluteus decubitus. Sacral stage 3 decubitus. pm1 Vital Signs: 16:17 BP 103 / 44; Pulse 65; Resp 20; Temp 97.8; Pulse Ox 95% on R/A; Weight 79.38 kg; Height aj 5 ft. 1 in. (154.94 cm); 17:00 BP 107 / 84; Pulse 64; Resp 16; Pulse Ox 98% on 2 lpm NC; ph 17:30 BP 112 / 69; Pulse 69; Resp 18; Pulse Ox 99% on 2 lpm NC; ph 18:30 BP 90 / 46; Pulse 62; Resp 18; Pulse Ox 98% on 2 lpm NC; ph 18:52 BP 99 / 54; Pulse 64; Resp 18; Pulse Ox 100% on 2 lpm NC; ph 19:00 BP 100 / 71; Pulse 74; Resp 19; Pulse Ox 99% ; bp 20:25 BP 107 / 66; Pulse 74; Resp 99; Pulse Ox 97% on R/A; rv 21:36 BP 117 / 87; Pulse 94; Resp 16; Pulse Ox 96% on R/A; rv 04/04 00:22 BP 102 / 43; Pulse 71; Resp 17; Temp 98.5(TE); Pulse Ox 100% ; rv 01:42 BP 95 / 45; Pulse 74; Resp 18; Pulse Ox 100% on 2 lpm NC; bp 04/03 16:17 Body Mass Index 33.07 (79.38 kg, 154.94 cm) aj MDM: 04/03 16:21 Patient medically screened. 22:26 Data reviewed: vital signs. Data interpreted: Pulse oximetry: on room air is 96 %. pm1 Interpretation: normal. Counseling: I had a detailed discussion with the patient and/or guardian regarding: the historical points, exam findings, and any diagnostic results supporting the discharge/admit diagnosis, lab results, radiology results, the need for outpatient follow up, to return to the emergency department if symptoms worsen or persist or if there are any questions or concerns that arise at home. 22:30 Physician consultation: MD Ames was contacted at 22:30, regarding admission, patient's pm1 condition, and will see patient Dr. Aundrea MARTINEZ plans to scope patient in AM tomorrow. 04/03 16:21 Order name: Urine Microscopic Only; Complete Time: 19:38 04/03 16:21 Order name: CPK; Complete Time: 18:14 04/03 16:21 Order name: Basic Metabolic Panel; Complete Time: 18:14 04/03 16:21 Order name: Blood Culture Adult (2) 04/03 16:21 Order name: BNP; Complete Time: 18:14 04/03 16:21 Order name: CBC with Diff; Complete Time: 17:43 04/03 16:21 Order name: Lactate; Complete Time: 18:14 04/03 16:21 Order name: LFT's; Complete Time: 18:14 04/03 16:21 Order name: Lipase; Complete Time: 18:14 04/03 16:21 Order name: Procalcitonin; Complete Time: 19:38 04/03 16:21 Order name: Protime (+inr); Complete Time: 17:54 jr8 06/16 16:21 Order name: Troponin (emerg Dept Use Only); Complete Time: 18:14 [facility] 04/03 17:09 Order name: UDS; Complete Time: 19:38 [facility] 04/03 18:55 Order name: Urine Dipstick--Ancillary (enter results); Complete Time: 19:38 [facility] 04/03 16:21 Order name: Cath; Complete Time: 19:04 [facility] 04/03 16:21 Order name: Chest Single View XRAY; Complete Time: 17:44 [facility] 04/03 17:46 Order name: CT Head Brain wo Cont; Complete Time: 18:15 8 04/03 18:57 Order name: Type And Screen [facility] 04/03 19:23 Order name: Urine Culture [facility] 04/03 19:39 Order name: Hemoglobin [facility] 04/03 19:39 Order name: Hematocrit [facility] 04/03 19:40 Order name: Hemoglobin; Complete Time: 22:54 [facility] 04/03 19:40 Order name: Hematocrit; Complete Time: 22:54 [facility] 04/03 21:06 Order name: Packed RBC Leukored -1 [facility] 04/03 21:08 Order name: Bb Add On eb 04/03 16:21 Order name: Accucheck; Complete Time: 16:45 [facility] 04/03 16:21 Order name: Cardiac monitoring; Complete Time: 16:45 [facility] 04/03 16:21 Order name: EKG - Nurse/Tech; Complete Time: 19:04 [facility] 04/03 16:21 Order name: IV Saline Lock - Large Bore; Complete Time: 16:45 [facility] 04/03 16:21 Order name: Labs collected and sent; Complete Time: 17:17 [facility] 04/03 16:21 Order name: O2 Per Protocol; Complete Time: 16:45 [facility] 04/03 16:21 Order name: O2 Sat Monitoring; Complete Time: 16:45 [facility] 04/03 16:21 Order name: Urine Dipstick-Ancillary (obtain specimen); Complete Time: 18:53 [facility] 04/03 17:46 Order name: Swallow Screen; Complete Time: 22:07 [facility] Administered Medications: 16:30 Drug: NS 0.9% (30 ml/kg) 30 ml/kg Route: IV; Rate: bolus; Site: right forearm; ph 19:03 Drug: NS 0.9% (30 ml/kg) 30 ml/kg Route: IV; Rate: bolus; Site: right wrist; ph 04/04 01:55 Follow up: IV Status: Completed infusion bp 04/03 20:40 Drug: NS 0.9% 250 ml Route: IV; Rate: bolus; Site: right forearm; rv 21:39 Follow up: IV Status: Completed infusion rv 20:40 Drug: ProTONIX 40 mg Route: IVP; Site: right forearm; rv 21:38 Follow up: Response: No adverse reaction rv 20:40 Drug: ProTONIX 8 mg/hr Route: IV; Rate: 25 ml/hr; Site: right forearm; rv 21:38 Follow up: Response: No adverse reaction rv 04/04 01:54 Follow up: IV Status: Infusion continued upon transfer bp 04/03 22:00 Drug: Rocephin 1 grams Route: IV; Rate: calculated rate; Site: right forearm; rv 04/04 01:54 Follow up: IV Status: Completed infusion bp Disposition: 04/03 19:09 Co-signature as Attending Physician, Hola Roberts MD. Disposition: 04/03/18 22:38 Transfer ordered to [facility]. Diagnosis are Gastrointestinal hemorrhage, unspecified, Urinary tract infection, site not specified, Altered mental status, unspecified, Elevated INR, Elevated troponin. - Reason for transfer: Higher level of care. - [facility] - Condition is Stable. - Problem is new. - Symptoms have improved. Signatures: Dispatcher [employer] EDMS Ricardo Carreon PA PA [id number] Julia Martinez RN RN Jimmie Du, LAND CLASSIFIER LAND CLASSIFIER pm1 Hola Roberts MD MD Amador Reyes RN RN rv Robbie Pereyra RN bp Corrections: (The following items were deleted from the chart) 04/04 01:57 04/03 22:38 04/03/2018 22:38 Transfer ordered to [facility]. rv Diagnosis is Gastrointestinal hemorrhage, unspecifiedUrinary tract infection, site not specified; Altered mental status, unspecified; Elevated INR; Elevated troponin. Reason for transfer: Higher level of care. [facility] Condition is Stable. Problem is new. Symptoms have improved. pm1
[2018-04-04 04:08] VITALS: TEMP 98.5; O2SAT 100
[2018-04-04 04:09] VITALS: BP 95/45
== END 2018-04-04 01:57 | disposition short-term general hospital (02) ==
LOC: ER 16:13
PROC: 30233N1 Transfusion of Nonautologous Red Blood Cells into Peripheral Vein, Percutaneous Approach (ICD-10-PCS; principal; 2018-04-04)
DX: N39.0 Urinary tract infection, site not specified (principal); K92.2 Gastrointestinal hemorrhage, unspecified; R79.1 Abnormal coagulation profile; R77.8 Other specified abnormalities of plasma proteins; I10 Essential (primary) hypertension; I50.9 Heart failure, unspecified; Z88.5 Allergy status to narcotic agent
CPT/HCPCS: 36415; 36430; 70450; 71045; 80048; 80076; 80307 ×9; 82550; 83605; 83690; 83880; 84145; 84484; 85014; 85018; 85025; 85610; 86850; 86900; 86901; 87040 ×2; 87086; 87088; 96365; 96366; 96367; 96375; 99285; C9113; J0696; J7030; P9016; 81003; 81015; 96361